=== PATIENT | male | born 1960 ===

== ENCOUNTER 2017-06-29 02:30 | Observation (INO) | payer MEDICAID, OTHER ==
[2017-06-29] MEDS ORDERED: Iohexol 240 (50 ml) PO ONE (03:23)
[2017-06-29 03:37] LABS: BASO # 0.1 K/uL (0.0-0.2); BASO % 0.4 % (0.0-2.0); EOS % 0.4 % (0.0-4.0); HEMATOCRIT 44.7 % (35.0-51.0); LYMPH # 1.8 K/uL (1.0-4.3); LYMPH % 15.2 % (20.0-40.0); MEAN CELL VOLUME 93.2 fl (80.0-94.0); MEAN CORPUSCULAR HEMOGLOBIN 32.2 pg (27.0-31.0); MEAN CORPUSCULAR HGB CONC 34.6 g/dL (33.0-37.0); MEAN PLATELET VOLUME 8.6 fl (7.2-11.7); MONO # 0.8 K/uL (0.0-0.8); MONO % 6.4 % (0.0-10.0); NEUT # 9.3 K/uL (1.8-7.0); NEUT % 77.6 % (50.0-75.0); NRBC % 0.1 % (0.0-0.0); RED CELL DISTRIBUTION WIDTH 13.9 % (11.5-14.5)
--- NOTE | 2017-06-29 03:52 | ED PDOC ---
HPI: Abdomen Time Seen by Provider: 06/29/17 02:53 Chief Complaint (Nursing): Abdominal Pain Chief Complaint (Provider): Abdominal pain History Per: Patient History/Exam Limitations: no limitations Onset/Duration Of Symptoms: Days (2) Outside of [place] travel?: No Current Symptoms Are (Timing): Still Present Location Of Pain/Discomfort: RLQ, LLQ Additional History Per: Patient Additional Complaint(s): The patient is a 57yo male, PMHx of depression, bilateral inguinal hernia repairs, presents to the ED with left sided abdominal pain, located in region of past hernia repair with mild swelling. He denies any fever, nausea, vomiting , change in bowel movements. He offers no other medical complaints. Past Medical History Reviewed: Historical Data, Nursing Documentation, Vital Signs Vital Signs: Last Vital Signs Temp 99.3 F 06/29/17 05:55 Pulse 83 06/29/17 05:55 Resp 16 06/29/17 05:55 BP 122/85 06/29/17 05:55 Pulse Ox 98 06/29/17 06:14 - Medical History PMH: COPD, Depression, HTN - Surgical History Surgical History: Hernia Repair (right inguinal (2009)) - Family History Family History: States: No Known Family Hx - Living Arrangements Living Arrangements: Other (undomiciled) - Social History Current smoker - smoking cessation education provided: Yes SMOKER/PACKS PER DAY:: 1 Alcohol: None Drugs: Denies - Immunization History Hx Influenza Vaccination: No - Home Medications Home Medications: Ambulatory Orders Medication Instructions Recorded Aleve 1 mg PO PRN 07/21/13 Naproxen Sodium [Aleve] 220 mg PO BID PRN 02/19/15 Naproxen [Naprosyn] 500 mg PO Q12H #20 tab 02/19/15 Tramadol Hydrochloride [Tramadol] 50 mg PO Q8 #10 tab 07/25/15 ARIPiprazole [Abilify] 5 mg PO HS #30 tab 02/10/16 Gabapentin [Neurontin] 400 mg PO TID #90 cap 02/10/16 Mirtazapine [Remeron] 30 mg PO HS #30 tab 02/10/16 Albuterol HFA [Ventolin HFA 90 2 puff IH [id number] PRN #0 puff 03/14/16 mcg/actuation (8 g)] Azithromycin [Zithromax] 1 tab PO DAILY #4 tablet 03/14/16 Methylprednisolone [Medrol Dose 4 mg PO DAILY #21 mg 03/14/16 Pack (21 tabs)] Ibuprofen [Motrin] 600 mg PO Q6 #20 tab 09/21/16 Nystatin [Mycostatin Cream] 100,000 unit TP TID #1 tube 09/21/16 Ibuprofen [Motrin] 600 mg PO Q8 PRN #15 tab 10/25/16 oxyCODONE/Acetaminophen [Percocet 1 ea PO Q6 PRN #10 tab 10/25/16 5/325 mg Tab] - Allergies Allergies/Adverse Reactions: Allergies Allergy/AdvReac Type Severity Reaction Status Date / Time No Known Allergies Allergy Verified 10/25/16 12:38 Review of Systems ROS Statement: Except As Marked, All Systems Reviewed And Found Negative Constitutional: Negative for: Fever Gastrointestinal: Positive for: Abdominal Pain (left inguinal area). Negative for: Nausea, Vomiting Physical Exam - Reviewed Nursing Documentation Reviewed: Yes Vital Signs Reviewed: Yes - Physical Exam Appears: Positive for: Non-toxic, No Acute Distress Head Exam: Positive for: ATRAUMATIC, NORMAL INSPECTION, NORMOCEPHALIC Skin: Positive for: Normal Color Eye Exam: Positive for: Normal appearance, EOMI, PERRL Neck: Positive for: Normal, Supple Cardiovascular/Chest: Positive for: Regular Rate, Rhythm Respiratory: Positive for: Normal Breath Sounds. Negative for: Accessory Muscle Use, Respiratory Distress Gastrointestinal/Abdominal: Positive for: Soft, Tenderness (mild tenderness in left lower quadrant along prior henria repair site; mild swelling noted, pt reports swelling is not new) Extremity: Positive for: Normal ROM. Negative for: Deformity, Swelling Neurologic/Psych: Positive for: Alert, Oriented. Negative for: Motor/Sensory Deficits - Laboratory Results Result Diagrams: 06/29/17 03:31 06/29/17 03:31 - ECG O2 Sat by Pulse Oximetry: 98 (RA) Pulse Ox Interpretation: Normal Medical Decision Making Medical Decision Making: Time: 0300 Impression: 57yo male with left inguinal pain in setting of previous inguinal hernia repair Plan: -- Labs -- CT AP w/ PO & IV contrast --Reassess Time: 0330 Pt to be placed under ED Obs pending CT AP. Scribe Attestation: Documented by Komal Lloyd acting as a scribe for Del Harris MD Provider Scribe Attestation: All medical record entries made by the Scribe were at my direction and personally dictated by me. I have reviewed the chart and agree that the record accurately reflects my personal performance of the history, physical exam, medical decision making, and the department course for this patient. I have also personally directed, reviewed, and agree with the discharge instructions and disposition. ED OBSERVATION Date of observation admission: 06/29/17 Time of observation admission: 03:30 - Observation admission statement Patient is being placed in observation because:: Pt w/ abdominal pain - Goals of Observation Goals of observation are:: Pt awaiting CT AP - Progress Note Progress Note: 06/29/17 05:05 Pt resting in room, no acute distress. 06/29/17 07:00 Pt to be signed out to Dr. Madrid pending CT AP. Disposition - Clinical Impression Clinical Impression: Abdominal pain - Patient ED Disposition Is Patient to be Admitted: Transfer of Care - Disposition Disposition: Transfer of Care Disposition Time: 03:30 Condition: FAIR Patient Signed Over To: Mila Madrid Handoff Comments: pending CT
[2017-06-29 04:24] LABS: ALB/GLOB RATIO 1.3 (1.0-2.1); ALKALINE PHOSPHATASE 135 U/L (38-126); ALT/SGPT 24 U/L (21-72); AST/SGOT 24 U/L (17-59); BLOOD UREA NITROGEN 15 mg/dl (9-20); CALCIUM 9.1 mg/dL (8.4-10.2); CARBON DIOXIDE 22 mmol/L (22-30); CHLORIDE 107 mmol/L (98-107); GFR AFRICAN-AMERICAN > 60; GLUCOSE,RANDOM 137 mg/dL (75-110); LIPASE 28 U/L (23-300); POTASSIUM 3.8 MMOL/L (3.6-5.0); SODIUM 141 mmol/l (132-148)
[2017-06-29] MEDS ORDERED: Iohexol 240 (50 ml) ONE (04:27)
[2017-06-29 05:25] LABS: RBC URINE 8 /hpf (0-3); URINE BACTERIA RARE (<OCC); URINE BILIRUBIN NEGATIVE (NEGATIVE); URINE BLOOD NEGATIVE (NEGATIVE); URINE COLOR YELLOW (YELLOW); URINE GLUCOSE (UA) NEG (Normal); URINE KETONE NEGATIVE (NEGATIVE); URINE LEUKOCYTE ESTERASE NEG Leu/uL (Negative); URINE PROTEIN 30 mg/dL (NEGATIVE); URINE UROBILINOGEN 0.2-1.0 mg/dL (0.2-1.0); WBC URINE 2 /hpf (0-5)
[2017-06-29] MEDS ORDERED: Sodium Chloride 0.9% 50 ML IV ONE (06:13)
[2017-06-29] MEDS ORDERED: Iohexol 300 100 ML IJ ONE (06:13)
--- NOTE | 2017-06-29 07:07 | ED PDOC ---
- Laboratory Results Result Diagrams: 06/29/17 03:31 06/29/17 03:31 - ECG O2 Sat by Pulse Oximetry: 97 (RA) Pulse Ox Interpretation: Normal Medical Decision Making Medical Decision Making: Time: 7:00 --Patient has been endorsed to me by Dr. Del Harris, pending CT results and final disposition *See ED-OBS tab for further documentation Scribe Attestation: Documented by Milagros Pederson, acting as a scribe for Mila Madrid MD Provider Scribe Attestation: All medical record entries made by the Scribe were at my direction and personally dictated by me. I have reviewed the chart and agree that the record accurately reflects my personal performance of the history, physical exam, medical decision making, and the department course for this patient. I have also personally directed, reviewed, and agree with the discharge instructions and disposition. Disposition - Clinical Impression Clinical Impression: Abdominal pain, Hematuria - POA Present On Arrival: None - Disposition Disposition: Routine/Home Disposition Time: 03:30 Condition: GOOD ED OBSERVATION Date of observation admission: 06/29/17 Time of observation admission: 03:30 - Observation admission statement Patient is being placed in observation because:: Abdominal pain - Goals of Observation Goals of observation are:: Time-extensive work up - Progress Note Progress Note: 06/29/17 Time: 7:00 --Patient is resting comfortably. Vital signs stable. Time: 7:16 CT Abdomen/Pelvis: FINDINGS: Lower thorax: There is minimal bibasilar atelectasis. ABDOMEN: Liver: Unremarkable. No mass. Gallbladder and bile ducts: The gallbladder is normal. No calcified stones. No ductal dilation. Pancreas: The pancreas is normal. No ductal dilation. Spleen: The spleen is normal. Adrenals: The adrenal glands are normal. Kidneys and ureters: The kidneys are normal. No hydronephrosis. Stomach and bowel: Stomach is decompressed. Colonic constipation is present. There is no evidence of intestinal obstruction. No mucosal thickening. Appendix: A normal appendix is identified. PELVIS: Bladder: Bladder is partially decompressed and demonstrates areas of wall thickening. This could relate to chronic outflow obstruction or infectious, inflammatory or neoplastic process. Please correlate clinically indicated further evaluation can be obtained. Reproductive: Prostate is prominent measuring 5.3 CM transverse. ABDOMEN and PELVIS: Intraperitoneal space: There is no evidence of free intraperitoneal fluid. There is no free intraperitoneal air. Bones/joints: There are mild degenerative changes present. No acute fracture. No dislocation. Soft tissues: Unremarkable. Vasculature: The aorta demonstrates mild atherosclerotic calcification. No abdominal aortic aneurysm. Lymph nodes: There is no evidence of lymphadenopathy. IMPRESSION: 1. Bladder is partially decompressed and demonstrates areas of wall thickening. This could relate to chronic outflow obstruction or infectious, inflammatory or neoplastic process. Please correlate clinically indicated further evaluation can be obtained. 2. Additional incidental and/or chronic findings as described. --UA reviewed and negative leukocytes, nitrates, and only 2 wbc. Patient denies dysuria. Patient made aware of his hematuria and enlarged prostate and instructed to follow-up. On reeevaluation, his abdomen is soft NT/ND. He is tolerating po and agreeable to discharge.
--- NOTE | 2017-06-29 07:16 | CT ---
EXAM: CT Abdomen and Pelvis With Intravenous Contrast CLINICAL HISTORY: 57 years old, male; Pain; Abdominal pain; Generalized; Additional info: Abd pain TECHNIQUE: Axial computed tomography images of the abdomen and pelvis with intravenous contrast. All CT scans at this facility use one or more dose reduction techniques, viz.: automated exposure control; ma/kV adjustment per patient size (including targeted exams where dose is matched to indication; i.e. head); or iterative reconstruction technique. Coronal and sagittal reformatted images were created and reviewed. CONTRAST: 95 mL of [id number] administered intravenously. COMPARISON: No relevant prior studies available. FINDINGS: Lower thorax: There is minimal bibasilar atelectasis. ABDOMEN: Liver: Unremarkable. No mass. Gallbladder and bile ducts: The gallbladder is normal. No calcified stones. No ductal dilation. Pancreas: The pancreas is normal. No ductal dilation. Spleen: The spleen is normal. Adrenals: The adrenal glands are normal. Kidneys and ureters: The kidneys are normal. No hydronephrosis. Stomach and bowel: Stomach is decompressed. Colonic constipation is present. There is no evidence of intestinal obstruction. No mucosal thickening. Appendix: A normal appendix is identified. PELVIS: Bladder: Bladder is partially decompressed and demonstrates areas of wall thickening. This could relate to chronic outflow obstruction or infectious, inflammatory or neoplastic process. Please correlate clinically indicated further evaluation can be obtained. Reproductive: Prostate is prominent measuring 5.3 CM transverse. ABDOMEN and PELVIS: Intraperitoneal space: There is no evidence of free intraperitoneal fluid. There is no free intraperitoneal air. Bones/joints: There are mild degenerative changes present. No acute fracture. No dislocation. Soft tissues: Unremarkable. Vasculature: The aorta demonstrates mild atherosclerotic calcification. No abdominal aortic aneurysm. Lymph nodes: There is no evidence of lymphadenopathy. IMPRESSION: 1. Bladder is partially decompressed and demonstrates areas of wall thickening. This could relate to chronic outflow obstruction or infectious, inflammatory or neoplastic process. Please correlate clinically indicated further evaluation can be obtained. 2. Additional incidental and/or chronic findings as described.
[2017-06-29 07:40] VITALS: BP 128/76; PULSE 78; RESP 19; TEMP 97.6; O2SAT 98
--- NOTE | 2017-06-29 07:47 | CARD ---
APPROVED REPORT EKG Measurement Heart [id number] <Conclusion> Normal sinus rhythm Normal ECG
== END 2017-06-29 07:39 | disposition home or self-care (01) ==
LOC: H.ER 02:30 → H.EROBSV 03:30
PROVIDERS: ADMIT Emergency Medicine; ATTEND Emergency Medicine
DX: R10.32 Left lower quadrant pain (principal); R31.9 Hematuria, unspecified; J44.9 Chronic obstructive pulmonary disease, unspecified; I10 Essential (primary) hypertension; F17.210 Nicotine dependence, cigarettes, uncomplicated; F32.9 Major depressive disorder, single episode, unspecified
CPT/HCPCS: 74177; 80053; 81003; 83690; 85025; 93005; 99283; G0378; Q9966; Q9967

== ENCOUNTER 2017-11-12 23:20 | Emergency (ER) | payer MEDICAID ==
[2017-11-12 23:45] VITALS: RESP 18; TEMP 98.6
--- NOTE | 2017-11-12 23:51 | ED PDOC ---
HPI: Abdomen Time Seen by Provider: 11/12/17 23:51 Chief Complaint (Nursing): GI Problem Chief Complaint (Provider): abd pain History Per: Patient Additional Complaint(s): 57-year-old male with history of cocaine abuse presents to emergency department complaining of abdominal pain and watery, diarrhea for the past 2 days. The patient states that his stool is black. He states he was seen at [facility] [place] [facility] yesterday and they gave him imodium and sent him home. He denies vomiting, fever or chills, no chest pain, shortness of breath or dyspnea on exertion. Patient currently lives in [facility]. Past Medical History Reviewed: Historical Data, Nursing Documentation, Vital Signs Vital Signs: Last Vital Signs Temp 98.6 F 11/12/17 23:40 Pulse 119 H 11/12/17 23:40 Resp 18 11/12/17 23:40 BP 149/109 H 11/12/17 23:40 Pulse Ox 98 11/13/17 02:27 - Medical History PMH: COPD, Depression, HTN (non-compliant with meds) - Surgical History Surgical History: Hernia Repair - Family History Family History: States: No Known Family Hx - Living Arrangements Living Arrangements: Other (non-domiciled) - Social History Current smoker - smoking cessation education provided: Yes Alcohol: None Drugs: Cocaine - Home Medications Home Medications: Ambulatory Orders Medication Instructions Recorded Aleve 1 mg PO PRN 07/21/13 Naproxen Sodium [Aleve] 220 mg PO BID PRN 02/19/15 Naproxen [Naprosyn] 500 mg PO Q12H #20 tab 02/19/15 Tramadol Hydrochloride [Tramadol] 50 mg PO Q8 #10 tab 07/25/15 ARIPiprazole [Abilify] 5 mg PO HS #30 tab 02/10/16 Gabapentin [Neurontin] 400 mg PO TID #90 cap 02/10/16 Mirtazapine [Remeron] 30 mg PO HS #30 tab 02/10/16 Albuterol HFA [Ventolin HFA 90 2 puff IH [id number] PRN #0 puff 03/14/16 mcg/actuation (8 g)] Azithromycin [Zithromax] 1 tab PO DAILY #4 tablet 03/14/16 Methylprednisolone [Medrol Dose 4 mg PO DAILY #21 mg 03/14/16 Pack (21 tabs)] Ibuprofen [Motrin] 600 mg PO Q6 #20 tab 09/21/16 Nystatin [Mycostatin Cream] 100,000 unit TP TID #1 tube 09/21/16 Ibuprofen [Motrin] 600 mg PO Q8 PRN #15 tab 10/25/16 oxyCODONE/Acetaminophen [Percocet 1 ea PO Q6 PRN #10 tab 10/25/16 5/325 mg Tab] - Allergies Allergies/Adverse Reactions: Allergies Allergy/AdvReac Type Severity Reaction Status Date / Time No Known Allergies Allergy Verified 10/25/16 12:38 Review of Systems ROS Statement: Except As Marked, All Systems Reviewed And Found Negative Constitutional: Negative for: Fever, Chills Cardiovascular: Negative for: Chest Pain Respiratory: Negative for: Cough Gastrointestinal: Positive for: Abdominal Pain, Diarrhea. Negative for: Nausea , Vomiting Neurological: Negative for: Headache, Dizziness Physical Exam - Reviewed Nursing Documentation Reviewed: Yes Vital Signs Reviewed: Yes - Physical Exam Appears: Positive for: Well, Non-toxic, No Acute Distress Skin: Negative for: Rash Eye Exam: Positive for: Normal appearance Cardiovascular/Chest: Positive for: Regular Rate, Rhythm Respiratory: Positive for: Normal Breath Sounds Gastrointestinal/Abdominal: Positive for: Soft, Tenderness (mild diffuse tenderness to lower abdomen, left inguinal hernia noted) Back: Negative for: L CVA Tenderness, R CVA Tenderness Neurologic/Psych: Positive for: Alert, Oriented - Laboratory Results Result Diagrams: 11/13/17 00:39 11/13/17 00:39 Urine dip results: Positive for: Blood (small). Negative for: Leukocyte Esterase, Nitrate, Ketones, Glucose, Bilirubin, Protein - ECG O2 Sat by Pulse Oximetry: 98 Pulse Ox Interpretation: Normal - Other Rad CT abd and pelvis with IV contrast X-Ray: Read By Radiologist X-Ray Interpretation: see below Medical Decision Making Medical Decision Makin57 year old male with abdominal pain and diarrhea Plan: CBC CMP Lipase U dip IVF Stool sample CT abd and pelvis with IV contrast CT: FINDINGS: Lower thorax: COPD.There is bibasilar atelectasis. Small hiatal hernia. ABDOMEN: Liver: Enlarged fatty liver. Gallbladder and bile ducts: Partially distended gallbladder with hyperdense sludge versus stones. versus vicarious excretion of the contrast. Pancreas: Unremarkable. No mass. No ductal dilation. Spleen: Unremarkable. No splenomegaly. Adrenals: Unremarkable. No mass. Kidneys and ureters: Unremarkable. No solid mass. No hydronephrosis. Stomach and bowel: Left inguinoscrotal herniation are colon. No colonic obstruction is identified. There are nonspecific fluid filled stomach, small bowel loops. These findings can represent ileus versus gastroenteritis/ enteritis versus slow transit versus peristalsis. Appendix: Normal appendix. PELVIS: Bladder: Bladder distention 9.6 cm with bladder wall thickening at the bladder base and multiple diverticula. Correlation with patient's voiding status is recommended. Reproductive: See above. ABDOMEN and PELVIS: Intraperitoneal space: Trace free pelvic fluid. Impression No free air. Bones/joints: No acute fracture. No dislocation. Soft tissues: There is a fat-containing umbilical hernia. Vasculature: Unremarkable. No abdominal aortic aneurysm. Lymph nodes: Unremarkable. No enlarged lymph nodes. IMPRESSION: 1. Bladder distention 9.6 cm with bladder wall thickening at the bladder base and multiple diverticula. These findings are unchanged from prior examination. Correlation with patient's voiding status and urology history is recommended. 2. Left inguinoscrotal herniation are colon. No colonic obstruction is identified. No strangulation or ganglion is identified. Patient is aware of all diagnostic testing results. He was referred to clinic for follow up. Disposition - Clinical Impression Clinical Impression: Diarrhea, Abdominal pain - Patient ED Disposition Is Patient to be Admitted: No Counseled Patient/Family Regarding: Studies Performed, Diagnosis, Need For Followup - Disposition Referrals: [facility] [Outside] Disposition: Routine/Home Disposition Time: 03:24 Condition: STABLE Additional Instructions: Follow-up with clinic for further evaluation of chronic inguinal hernia. Instructions: Abdominal Pain (ED), Acute Diarrhea (ED), Nutrition Tips for Relief of Diarrhea (ED) Forms: USDS (Ivorian) Results - Lab Results Lab Results: 11/13/17 11/13/17 00:39 00:39 WBC 11.2 H RBC 4.71 Hgb 14.8 Hct 43.2 MCV 91.8 MCH 31.4 H MCHC 34.2 RDW 13.2 Plt Count 209 MPV 7.0 L Neut % (Auto) 84.5 H Lymph % (Auto) 7.6 L [place] % (Auto) 7.3 Eos % (Auto) 0.2 Baso % (Auto) 0.4 Neut # 9.4 H Lymph # 0.8 L [place] # 0.8 Eos # 0.0 Baso # 0.0 Neutrophils % (Manual) Pending Lymphocytes % (Manual) Pending Monocytes % (Manual) Pending Platelet Estimate Pending Sodium 133 Potassium 3.5 L Chloride 101 Carbon Dioxide 23 Anion Gap 13 BUN 13 Creatinine 0.8 Est GFR ( Amer) > 60 Est GFR (Non-Af Amer) > 60 Random Glucose 98 Calcium 8.7 Total Bilirubin 0.5 AST 29 ALT 29 Alkaline Phosphatase 106 Total Protein 6.6 Albumin 3.6 Globulin 3.0 Albumin/Globulin Ratio 1.2 Lipase 23
[2017-11-13] MEDS ORDERED: Sodium Chloride 0.9% 1,000 ML IV STA (00:12)
[2017-11-13 00:43] LABS: BASO % 0.4 % (0.0-2.0); EOS % 0.2 % (0.0-4.0); HEMOGLOBIN 14.8 g/dL (12.0-18.0); LYMPH # 0.8 K/uL (1.0-4.3); LYMPH % 7.6 % (20.0-40.0); MEAN CELL VOLUME 91.8 fl (80.0-94.0); MEAN CORPUSCULAR HEMOGLOBIN 31.4 pg (27.0-31.0); MEAN CORPUSCULAR HGB CONC 34.2 g/dL (33.0-37.0); MONO # 0.8 K/uL (0.0-0.8); MONO % 7.3 % (0.0-10.0); NEUT # 9.4 K/uL (1.8-7.0); NEUT % 84.5 % (50.0-75.0); PLATELET COUNT 209 K/uL (130-400); RBC 4.71 Mil/uL (4.40-5.90); RED CELL DISTRIBUTION WIDTH 13.2 % (11.5-14.5); WHITE BLOOD COUNT 11.2 K/uL (4.8-10.8)
[2017-11-13 00:49] LABS: ALBUMIN 3.6 g/dL (3.5-5.0); BLOOD UREA NITROGEN 13 mg/dl (9-20); CALCIUM 8.7 mg/dL (8.4-10.2); GFR AFRICAN-AMERICAN > 60; GFR NON-AFRICAN AMERICAN > 60
[2017-11-13 00:50] LABS: ALB/GLOB RATIO 1.2 (1.0-2.1); ALT/SGPT 29 U/L (21-72); AST/SGOT 29 U/L (17-59); LIPASE 23 U/L (23-300)
[2017-11-13] MEDS ORDERED: Iohexol 300 100 ML IJ ONE (01:24)
[2017-11-13] MEDS ORDERED: Sodium Chloride 0.9% 50 ML IV ONE (01:24)
--- NOTE | 2017-11-13 02:16 | CT ---
EXAM: CT Abdomen and Pelvis With Intravenous Contrast CLINICAL HISTORY: 57 years old, male; Pain; Abdominal pain; Generalized; Additional info: Abd pain, diarrhea, left inguinal hernia TECHNIQUE: Axial computed tomography images of the abdomen and pelvis with intravenous contrast. All CT scans at this facility use one or more dose reduction techniques, viz.: automated exposure control; ma/kV adjustment per patient size (including targeted exams where dose is matched to indication; i.e. head); or iterative reconstruction technique. 587 images are submitted. Contrast is seen in the colon. Coronal and sagittal reformatted images were created and reviewed. CONTRAST: 90 mL of [id number] administered intravenously. COMPARISON: CT - ABD PELVIS PO IV CONTRAST 2017-06-29 06:36 FINDINGS: Lower thorax: COPD.There is bibasilar atelectasis. Small hiatal hernia. ABDOMEN: Liver: Enlarged fatty liver. Gallbladder and bile ducts: Partially distended gallbladder with hyperdense sludge versus stones versus vicarious excretion of the contrast. Pancreas: Unremarkable. No mass. No ductal dilation. Spleen: Unremarkable. No splenomegaly. Adrenals: Unremarkable. No mass. Kidneys and ureters: Unremarkable. No solid mass. No hydronephrosis. Stomach and bowel: Left inguinoscrotal herniation are colon. No colonic obstruction is identified. There are nonspecific fluid filled stomach, small bowel loops. These findings can represent ileus versus gastroenteritis/enteritis versus slow transit versus peristalsis. Appendix: Normal appendix. PELVIS: Bladder: Bladder distention 9.6 cm with bladder wall thickening at the bladder base and multiple diverticula. Correlation with patient's voiding status is recommended. Reproductive: See above. ABDOMEN and PELVIS: Intraperitoneal space: Trace free pelvic fluid. Impression No free air. Bones/joints: No acute fracture. No dislocation. Soft tissues: There is a fat-containing umbilical hernia. Vasculature: Unremarkable. No abdominal aortic aneurysm. Lymph nodes: Unremarkable. No enlarged lymph nodes. IMPRESSION: 1. Bladder distention 9.6 cm with bladder wall thickening at the bladder base and multiple diverticula. These findings are unchanged from prior examination. Correlation with patient's voiding status and urology history is recommended. 2. Left inguinoscrotal herniation are colon. No colonic obstruction is identified. No strangulation or ganglion is identified.
[2017-11-13 03:59] VITALS: BP 124/83; PULSE 86; O2SAT 99
[2017-11-13 04:21] LABS: BANDS 2 % (0-2); LYMPHOCYTE 12 % (20-50); MONOCYTE 5 % (0-10); TOTAL CELLS COUNTED 100
[2017-11-13 04:23] LABS: PLATELET ESTIMATE NORMAL (NORMAL)
[2017-11-13 04:37] LABS: BASOPHIL 1 % (0-2); EOSINOPHIL 2 % (0-7); NEUTROPHIL 78 % (42-75)
== END 2017-11-13 04:30 | disposition home or self-care (01) ==
LOC: H.ER 23:20
DX: R10.9 Unspecified abdominal pain (principal); R19.7 Diarrhea, unspecified; F17.200 Nicotine dependence, unspecified, uncomplicated; I10 Essential (primary) hypertension; Z86.59 Personal history of other mental and behavioral disorders
CPT/HCPCS: 74177; 80053; 83690; 85025; 87230; 96360; 99283; J7040; Q9967

== ENCOUNTER 2018-01-09 12:04 | Observation (INO) | payer MEDICAID, OTHER ==
[2018-01-09 14:52] LABS: BASO # 0.1 K/uL (0.0-0.2); BASO % 0.8 % (0.0-2.0); EOS # 0.1 K/uL (0.0-0.7); EOS % 0.9 % (0.0-4.0); HEMOGLOBIN 16.3 g/dL (12.0-18.0); LYMPH # 1.8 K/uL (1.0-4.3); MEAN CELL VOLUME 94.8 fl (80.0-94.0); MEAN CORPUSCULAR HEMOGLOBIN 31.5 pg (27.0-31.0); MEAN CORPUSCULAR HGB CONC 33.3 g/dL (33.0-37.0); MEAN PLATELET VOLUME 7.1 fl (7.2-11.7); MONO # 0.7 K/uL (0.0-0.8); MONO % 8.1 % (0.0-10.0); NEUT # 6.3 K/uL (1.8-7.0); NEUT % 70.2 % (50.0-75.0); RBC 5.19 Mil/uL (4.40-5.90); RED CELL DISTRIBUTION WIDTH 14.2 % (11.5-14.5)
[2018-01-09 15:00] LABS: ACETAMINOPHEN < 10.0 ug/ml (10.0-30.0); ALB/GLOB RATIO 1.2 (1.0-2.1); ALT/SGPT 28 U/L (21-72); AST/SGOT 21 U/L (17-59); BLOOD UREA NITROGEN 19 mg/dl (9-20); CALCIUM 9.9 mg/dL (8.4-10.2); GFR AFRICAN-AMERICAN > 60; GFR NON-AFRICAN AMERICAN > 60; SALICYLATE < 1.0 mg/dl
--- NOTE | 2018-01-09 15:34 | ED PDOC ---
HPI: Psych/Substance Abuse Time Seen by Provider: 01/09/18 12:55 Chief Complaint (Nursing): Psychiatric Evaluation Chief Complaint (Provider): Im at the end of my rope History/Exam Limitations: no limitations Onset/Duration Of Symptoms: Gradual Current Symptoms Are (Timing): Still Present Suicide/Self Injury Attempted (Context): None Modifying Factor(s): None Severity: Severe Associated Symptoms: Agitation, Paranoia Additional Complaint(s): 57yo male presents w "need for help im at the end of my rope" c/o depression and thoughts of self harm. He denies alcohol use, last drug use cocaine 1 week ago. Admits to homelessness. Denies hallucinations, fever, SOB, CP or headache. Past Medical History Reviewed: Historical Data, Nursing Documentation, Vital Signs Vital Signs: Last Vital Signs Temp 98.4 F 01/09/18 12:08 Pulse 99 H 01/09/18 12:08 Resp 18 01/09/18 12:08 BP 157/100 H 01/09/18 12:08 Pulse Ox 99 01/09/18 12:08 - Medical History PMH: Anxiety, COPD, Depression, HTN (non-compliant with meds) Denies: Arthritis, Diabetes, Fractures, Hepatitis, HIV, Kidney Stones, Seizures, Sexually Transmitted Disease - Surgical History Surgical History: Hernia Repair - Family History Family History: States: Unknown Family Hx - Living Arrangements Living Arrangements: Other - Social History Current smoker - smoking cessation education provided: Yes Alcohol: None Drugs: Cocaine - Immunization History Hx Influenza Vaccination: No - Home Medications Home Medications: Ambulatory Orders Medication Instructions Recorded No Known Home Med 01/08/18 - Allergies Allergies/Adverse Reactions: Allergies Allergy/AdvReac Type Severity Reaction Status Date / Time No Known Allergies Allergy Verified 01/08/18 13:24 Review of Systems Constitutional: Negative for: Fever Cardiovascular: Negative for: Chest Pain Respiratory: Negative for: Cough Gastrointestinal: Negative for: Nausea, Abdominal Pain Genitourinary Male: Negative for: Dysuria Musculoskeletal: Negative for: Neck Pain Skin: Negative for: Rash, Lesions Neurological: Negative for: Weakness, Numbness, Headache Psych: Positive for: Anxiety, Depression, Suicidal ideation Physical Exam - Reviewed Nursing Documentation Reviewed: Yes Vital Signs Reviewed: Yes - Physical Exam Appears: Positive for: Well, Non-toxic, No Acute Distress Head Exam: Positive for: ATRAUMATIC, NORMAL INSPECTION, NORMOCEPHALIC Skin: Positive for: Normal Color, Warm, DRY Eye Exam: Positive for: EOMI, Normal appearance, PERRL ENT: Positive for: Normal ENT Inspection Neck: Positive for: Normal, Painless ROM Cardiovascular/Chest: Positive for: Regular Rate, Rhythm Respiratory: Positive for: CNT, Normal Breath Sounds Gastrointestinal/Abdominal: Positive for: Normal Exam, Bowel Sounds, Soft Back: Positive for: Normal Inspection Extremity: Positive for: Normal ROM, Other (excoriations to skin). Negative for : Tenderness Neurologic/Psych: Positive for: Alert, Oriented, Mood/Affect (flat, anxious). Negative for: Motor/Sensory Deficits - Laboratory Results Result Diagrams: 01/10/18 04:20 01/11/18 04:25 - ECG O2 Sat by Pulse Oximetry: 99 Medical Decision Making Medical Decision Making: crisis workup initiated labs and 1:1 ordered ativan 1mg IM given for mild agitation and anxiolysis per crisis will need [facility] screen and patient uncooperative and argumentative w poor insight Disposition - Clinical Impression Clinical Impression: Suicidal ideation - Patient ED Disposition Is Patient to be Admitted: Transfer of Care - Disposition Disposition: Transfer of Care Disposition Time: 15:35 Condition: STABLE Patient Signed Over To: Saira Livingston (and FLACO Hollingsworth)
[2018-01-09 16:41] LABS: BARBITURATES, UR NEGATIVE (NEGATIVE); BENZODIAZEPINES, UR NEGATIVE (NEGATIVE); OPIATES, UR NEGATIVE (NEGATIVE); PHENCYCLIDINE, UR NEGATIVE (NEGATIVE)
[2018-01-09] MEDS ORDERED: DiphenhydrAMINE 50 mg/ml Inj IM STA (19:51)
[2018-01-09 22:14] LABS: T4 7.1 ug/dl (5.5-11.0)
[2018-01-09 22:36] LABS: T3 0.795 nmol/L (1.49-2.60)
[2018-01-10] MEDS ORDERED: Dextrose 5%/0.45% NS 1,000 ML IV SCH (00:15)
[2018-01-10 06:05] LABS: HEMOGLOBIN 15.4 g/dL (12.0-18.0); MEAN CELL VOLUME 94.9 fl (80.0-94.0); MEAN CORPUSCULAR HEMOGLOBIN 31.6 pg (27.0-31.0); MEAN CORPUSCULAR HGB CONC 33.2 g/dL (33.0-37.0); RBC 4.88 Mil/uL (4.40-5.90); WHITE BLOOD COUNT 7.5 K/uL (4.8-10.8)
[2018-01-10 06:12] LABS: BLOOD UREA NITROGEN 22 mg/dl (9-20); CALCIUM 9.3 mg/dL (8.4-10.2); GFR AFRICAN-AMERICAN > 60; GFR NON-AFRICAN AMERICAN > 60
--- NOTE | 2018-01-10 10:52 | HP ---
HISTORY OF PRESENT ILLNESS: Mr. Pitt is a 57-year-old male who was admitted via the Emergency Room because of suicidal ideation. He complains of feeling depressed and thinks he is at the end of his rope. He has thoughts of harming himself. He was seen in the Emergency Room and part of his workup included thyroid profile, which showed normal thyroid function studies. He was therefore admitted to the medical floor pending transfer to the psychiatric unit. He indicated that he had used cocaine one week prior to this presentation and admits to be in homeless. PAST MEDICAL HISTORY: He has past medical history of anxiety, depression, chronic obstructive pulmonary disease, and hypertension, but has been noncompliant to his medications. He also indicated that he has questionable history of abnormal EKG in the past. FAMILY HISTORY: Non-revealing. SOCIAL HISTORY: Socially, he does not offer history of cigarette smoking, but indicates he has smoked in the past and used the drugs. REVIEW OF SYSTEMS: Remarkable for an apprehensive young man who is not willing to answer questions. PHYSICAL EXAMINATION: VITAL SIGNS: Blood pressure 157/100 on admission, pulse of 99, respiratory rate of 18. He is febrile. O2 sat 99% on room air. SKIN: Shows fair turgor. HEENT: Pupils are equal and reactive to light and accommodation. Mouth shows fair hygiene. LUNGS: Clear. HEART: Regular. No murmurs or gallops. ABDOMEN: Soft and nontender. No organomegaly. EXTREMITIES: Shows no edema or cyanosis. CENTRAL NERVOUS SYSTEM: No grossly deficits appreciated except for the patient being apprehensive and non-cooperative. LABORATORY DATA: Remarkable for WBC of 7.5, hemoglobin of 15.4, and platelet count of 289,000. Sodium 142, potassium 4.0, BUN 22, creatinine 0.8, and random glucose 120. Thyroid profile is remarkable for TSH of 0.19, which is low and free T4 of 0.92 and T4 of 7.10. Cocaine is positive on drug screen. IMPRESSION: Suicidal ideation, hypertension poorly controlled, abnormal EKG probably secondary to hypertension and hypertensive heart disease and could also be due to drug use and cocaine abuse, thyroid disorder, and questionable hyperthyroidism. PLAN: Endocrine evaluation, Psychiatry evaluation for possible transfer to psych unit, medically cleared for transfer to the psych unit, once cleared by the financial manager. Xu Eid MD [facility] # [id number]
--- NOTE | 2018-01-10 11:45 | CP.PCM.CON ---
History of Present Illness - History of Present Illness History of Present Illness: consult requested for depression and suicidal ideations pt is 57 ys old male with previous diagnosis of depression and cocaine, and cannabis use, pt discharged on 01/09/18 from [facility] where he was admitted for one day for depression, and suicidal ideation, reportedly pt has attempted to jump in front of the tracks of the light rail pt then presented to [facility] ER complaining of depressed mood and suicidal ideations with plan either to hang himself or cut his vein pt on evaluation, loud irritable angry, denying that he signed AMA and reported that he continues to feel depressed and having suicidal thoughts, pt relates that to the fact that he is unemployed and homeless and also having conflict with his son through the interview pt requested to be discharged stating he would rather leave and end his lfe as the system could not help him and he feels mistreated discussed with pt admission to voluntary psychiatry unit for stabilization, pt refused and stated he would rather leave and end his life as he is tired pt angry, verbally abusive and cursing throughout the interview continues to report suicidal ideations with plan to cut his wrist on discharge patient urine toxicology is positive for cocaine Past Patient History - Past Medical History & Family History Past Medical History?: Yes - Past Social History Smoking Status: Heavy Smoker > 10 Cigarettes Daily - CARDIAC Hx Hypertension: Yes (non-compliant with meds) - PULMONARY Hx Chronic Obstructive Pulmonary Disease (COPD): Yes - NEUROLOGICAL Hx Seizures: No - RENAL Hx Kidney Stones: No - ENDOCRINE/METABOLIC Hx Systemic Lupus Erythematosus: No - HEMATOLOGICAL/ONCOLOGICAL Hx AIDS: No Hx Human Immunodeficiency Virus (HIV): No - MUSCULOSKELETAL/RHEUMATOLOGICAL Hx Arthritis: No Hx Falls: No Hx Fractures: No - GASTROINTESTINAL Hx Colitis: No Hx Liver Failure: No Hx Nausea: No - GENITOURINARY/GYNECOLOGICAL Hx Sexually Transmitted Disorders: No - PSYCHIATRIC Hx Anxiety: Yes Hx Depression: Yes Hx Substance Use: Yes (cocaine) - SURGICAL HISTORY Hx Surgeries: Yes Hx Herniorrhaphy: Yes (right inguinal hernia 2009) - ANESTHESIA Hx Anesthesia: Yes Hx Anesthesia Reactions: No Meds Allergies/Adverse Reactions: Allergies Allergy/AdvReac Type Severity Reaction Status Date / Time No Known Allergies Allergy Verified 01/08/18 13:24 - Medications Medications: Current Medications Dextrose/Sodium Chloride (Dextrose 5%/0.45% Ns 1000 Ml) 1,000 mls @ 40 mls/hr IV .Q24H REPLACED BY [facility] Stop: 01/11/18 00:14 Last Admin: 01/10/18 00:39 Dose: 40 mls/hr Lorazepam (Ativan) 1 mg PO Q12 PRN PRN Reason: Agitation Metoprolol Tartrate (Lopressor) 25 mg PO Q12 REPLACED BY [facility] Last Admin: 01/10/18 09:10 Dose: 25 mg Physical Exam - Psychiatric Exam Additional comments: pt seen in bed, unkempt disheveled , irritable, poor eye contact, speech loud, mood depressed and angry affect depressed, irritable, dominering and hypervigelant, thought form circumstantial, continues to report active suicidal ideations with plan to cut his wrist on discharge positive delusions of persecution towards staff alert awake oriented to person and place poor insight and poor judgment Results - Vital Signs Recent Vital Signs: Last Vital Signs Temp 98.5 F 01/10/18 08:07 Pulse 63 01/10/18 09:10 Resp 18 01/10/18 08:07 BP 137/87 01/10/18 09:10 Pulse Ox 96 01/10/18 08:07 - Labs Result Diagrams: 01/10/18 04:20 01/10/18 04:20 Labs: Laboratory Results - last 24 hr 01/09/18 01/09/18 01/09/18 14:35 14:35 14:35 WBC 9.0 RBC 5.19 Hgb 16.3 Hct 49.2 MCV 94.8 H D MCH 31.5 H MCHC 33.3 RDW 14.2 Plt Count 329 D MPV 7.1 L Neut % (Auto) 70.2 Lymph % (Auto) 20.0 Drew % (Auto) 8.1 Eos % (Auto) 0.9 Baso % (Auto) 0.8 Neut # (Auto) 6.3 Lymph # (Auto) 1.8 Drew # (Auto) 0.7 Eos # (Auto) 0.1 Baso # (Auto) 0.1 Sodium 144 Potassium 4.8 Chloride 104 Carbon Dioxide 28 Anion Gap 17 BUN 19 Creatinine 0.9 Est GFR ( Amer) > 60 Est GFR (Non-Af Amer) > 60 POC Glucose (mg/dL) Random Glucose 88 Calcium 9.9 Phosphorus Magnesium Total Bilirubin 0.4 AST 21 ALT 28 Alkaline Phosphatase 126 Troponin I Total Protein 7.3 Albumin 4.0 Globulin 3.3 Albumin/Globulin Ratio 1.2 Free T4 Thyroxine (T4) Total T3 TSH 3rd Generation Salicylates < 1.0 Urine Opiates Screen Urine Methadone Screen Acetaminophen < 10.0 L Ur Barbiturates Screen Ur Phencyclidine Scrn Ur Amphetamines Screen U Benzodiazepines Scrn U Oth Cocaine Metabols U Cannabinoids Screen Alcohol, Quantitative < 10 01/09/18 01/09/18 01/09/18 14:35 16:11 21:39 WBC RBC Hgb Hct MCV MCH MCHC RDW Plt Count MPV Neut % (Auto) Lymph % (Auto) Drew % (Auto) Eos % (Auto) Baso % (Auto) Neut # (Auto) Lymph # (Auto) Drew # (Auto) Eos # (Auto) Baso # (Auto) Sodium Potassium Chloride Carbon Dioxide Anion Gap BUN Creatinine Est GFR ( Amer) Est GFR (Non-Af Amer) POC Glucose (mg/dL) Random Glucose Calcium Phosphorus 4.1 Magnesium 2.2 Total Bilirubin AST ALT Alkaline Phosphatase Troponin I < 0.0120 Total Protein Albumin Globulin Albumin/Globulin Ratio Free T4 0.92 Thyroxine (T4) Total T3 TSH 3rd Generation 0.19 L Salicylates Urine Opiates Screen Negative Urine Methadone Screen Negative Acetaminophen Ur Barbiturates Screen Negative Ur Phencyclidine Scrn Negative Ur Amphetamines Screen Negative U Benzodiazepines Scrn Negative U Oth Cocaine Metabols Positive H U Cannabinoids Screen Negative Alcohol, Quantitative 01/09/18 01/10/18 01/10/18 21:39 04:20 04:20 WBC 7.5 RBC 4.88 Hgb 15.4 Hct 46.3 MCV 94.9 H MCH 31.6 H MCHC 33.2 RDW 14.0 Plt Count 289 MPV Neut % (Auto) Lymph % (Auto) Drew % (Auto) Eos % (Auto) Baso % (Auto) Neut # (Auto) Lymph # (Auto) Drew # (Auto) Eos # (Auto) Baso # (Auto) Sodium 142 Potassium 4.0 Chloride 107 Carbon Dioxide 23 Anion Gap 16 BUN 22 H Creatinine 0.8 Est GFR ( Amer) > 60 Est GFR (Non-Af Amer) > 60 POC Glucose (mg/dL) Random Glucose 103 Calcium 9.3 Phosphorus Magnesium Total Bilirubin AST ALT Alkaline Phosphatase Troponin I Total Protein Albumin Globulin Albumin/Globulin Ratio Free T4 Thyroxine (T4) 7.10 Total T3 0.795 L TSH 3rd Generation Salicylates Urine Opiates Screen Urine Methadone Screen Acetaminophen Ur Barbiturates Screen Ur Phencyclidine Scrn Ur Amphetamines Screen U Benzodiazepines Scrn U Oth Cocaine Metabols U Cannabinoids Screen Alcohol, Quantitative 01/10/18 05:30 WBC RBC Hgb Hct MCV MCH MCHC RDW Plt Count MPV Neut % (Auto) Lymph % (Auto) Drew % (Auto) Eos % (Auto) Baso % (Auto) Neut # (Auto) Lymph # (Auto) Drew # (Auto) Eos # (Auto) Baso # (Auto) Sodium Potassium Chloride Carbon Dioxide Anion Gap BUN Creatinine Est GFR ( Amer) Est GFR (Non-Af Amer) POC Glucose (mg/dL) 120 H Random Glucose Calcium Phosphorus Magnesium Total Bilirubin AST ALT Alkaline Phosphatase Troponin I Total Protein Albumin Globulin Albumin/Globulin Ratio Free T4 Thyroxine (T4) Total T3 TSH 3rd Generation Salicylates Urine Opiates Screen Urine Methadone Screen Acetaminophen Ur Barbiturates Screen Ur Phencyclidine Scrn Ur Amphetamines Screen U Benzodiazepines Scrn U Oth Cocaine Metabols U Cannabinoids Screen Alcohol, Quantitative Assessment & Plan - Assessment and Plan (Free Text) Assessment: 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
--- NOTE | 2018-01-10 13:13 | RAD ---
HISTORY: med clr COMPARISON: 03/14/2016 FINDINGS: LUNGS: No active pulmonary disease. Bilateral hyperaeration- background COPD compatible with this PLEURA: No significant pleural effusion identified, no pneumothorax apparent. CARDIOVASCULAR: Normal. OSSEOUS STRUCTURES: No significant abnormalities. VISUALIZED UPPER ABDOMEN: Normal. OTHER FINDINGS: None. IMPRESSION: No interval acute cardiopulmonary pathology noted. Bilateral hyperaeration -background COPD compatible with this
[2018-01-10 13:55] LABS: URINE BILIRUBIN NEGATIVE (NEGATIVE); URINE BLOOD NEGATIVE (NEGATIVE); URINE CLARITY CLEAR (Clear); URINE COLOR YELLOW (YELLOW); URINE GLUCOSE (UA) NEG (Normal); URINE LEUKOCYTE ESTERASE NEG Leu/uL (Negative); URINE PROTEIN NEGATIVE (NEGATIVE); URINE UROBILINOGEN 0.2-1.0 mg/dL (0.2-1.0)
--- NOTE | 2018-01-10 14:37 | PN ---
DATE: ENDOCRINOLOGY FOLLOWUP NOTE LOCATION: Room number 417. SUBJECTIVE: This is a 57-year-old male with known history of major anxiety, depression and admitted here with marked agitation and restlessness and emotional dysphoria and is being referred now for Endocrine evaluation because of abnormal thyroid function studies. Past medical history as mentioned above, history of hypertension, dyslipidemia and actually has been off his medications as noted. Also history of chronic schizo-affective disorder and made previous admissions for major depression, and history of chronic obstructive lung disease from underlying nicotine dependence. FAMILY HISTORY: Positive for hypertension and heart disease. SOCIAL HISTORY: The patient has supportive family, but admits to homelessness at this time. Also admits to nicotine dependence and recent cocaine use. REVIEW OF SYSTEMS: He admits to generalized body weakness with easy fatigability and tiredness and suboptimal energy level. Also admits to marked insomnia with bifrontal headaches and recent bouts of dizziness and lightheadedness. Moreover, admits to episodic precordial chest pain with palpitations, especially on exertion. His oral intake is variable with nausea and dyspepsia and occasional hyperdefecation. PHYSICAL EXAMINATION: GENERAL: An average built male in no apparent distress. VITAL SIGNS: With a blood pressure of 150/100, pulse of 100 beats per minute and regular, temperature of 98, and respirations of 20. Height is 5 feet and 6 inches and weight is 130 pounds. HEENT: Head is normocephalic. Eyes are anicteric with pink conjunctivae. Funduscopy is not possible at this time. Ears, nose and throat otherwise normal. NECK: Supple. Thyroid gland is normal. Thyroid gland shows nodular thyromegaly, which is firm and nontender. No overt bruits or any thyroid nodules at this time. HEART: Hyperdynamic precordium. S1 and S2 is rapid and regular. LUNGS: Clear to auscultation. GASTROINTESTINAL: Abdomen is flat and soft with positive bowel sounds. EXTREMITIES: No peripheral edema. Pulses are +2 bilaterally. LABORATORY DATA: His chemistries showed a BUN of 22, sodium of 142, potassium of 4.0, chloride of 107, CO2 of 23, glucose of 120 and creatinine of 0.8. His T4 levels are 7.10 with a TSH of 0.79 with the initial TSH of 0.19. ASSESSMENT: This is a 57-year-old male with subclinical hyperthyroidism and overt clinical and historical manifestations of hyperthyroidism with concomitant major depressive disorder and marked constitutional symptoms and insomnia and mood instability as noted. He most likely has Graves disease with underlying diffuse toxic goiter, but no overt compressive or obstructive manifestations. PLAN OF MANAGEMENT: We will start him on a low-dose medical therapy with Tapazole given as 5 mg p.o. twice daily after meals to start today. We will titrate incremental as indicated to optimize metabolic control. We will obtain all the thyroid stimulating immunoglobulin and a thyroid peroxidase antibody to confirm and/or indicate the presence of underlying thyroid autoimmunity. We will obtain serial chemistries and supplement accordingly as needed. We will follow. Pao Kunz MD
[2018-01-10] MEDS: methIMAzole 5 MG TAB PO SCH (17:22)
--- NOTE | 2018-01-10 19:31 | CARD ---
APPROVED REPORT EKG Measurement Heart [id number] <Conclusion> Normal sinus rhythm Incomplete right bundle branch block Borderline ECG
--- NOTE | 2018-01-10 19:42 | CARD ---
APPROVED REPORT EKG Measurement Heart [id number] [id number] <Conclusion> Unusual P axis and short [place], probable junctional tachycardia Minimal voltage criteria for LVH, may be normal variant ST elevation, consider early repolarization, pericarditis, or injury Abnormal ECG
[2018-01-11 05:52] LABS: T4 6.54 ug/dl (5.5-11.0)
[2018-01-11 05:53] LABS: ALB/GLOB RATIO 1.1 (1.0-2.1); ALBUMIN 3.5 g/dL (3.5-5.0); ALT/SGPT 20 U/L (21-72); AST/SGOT 20 U/L (17-59); BLOOD UREA NITROGEN 19 mg/dl (9-20); CALCIUM 9.4 mg/dL (8.4-10.2); GFR AFRICAN-AMERICAN > 60; GFR NON-AFRICAN AMERICAN > 60
[2018-01-11] MEDS: methIMAzole 5 MG TAB PO SCH (08:42)
--- NOTE | 2018-01-11 09:12 | CP.PCM.PN ---
Subjective - Date & Time of Evaluation Date of Evaluation: 01/11/18 Time of Evaluation: 09:12 - Subjective Subjective: APPREHENSIVE AND UNCOOPERATIVE UNWILLING TO ANSWER QUESTIONS DOES NOT LIKE MY ATTITUDE BECAUSE I WAS ASKING HIM QUESTIONS--HE THEN REFUSED TO TALK NO NEW CLINICAL FINDINGS REPORT FROM [facility] CRISIS UNIT NOTED PT NOW WANTS TO SIGN OUT OF HOSPITAL HE WAS TOLD THAT HE CANNOT SIGN OUT UNTIL CLEARED BY PSYCH HE CALLED ME A NASTY SON OF A BITCH AND REMOVED HIS IV HE DOES NOT WANT ME HIS DOCTOR AND REQUESTS A PT ADVOCATE WILL REQUEST THE NURSING RETAIL ASSISTANT TO SEE PT DISPOSITION WILL DEPEND ON PSYCH AND ORGAN PIPE VOICER. Objective - Vital Signs/Intake and Output Vital Signs (last 24 hours): Temp Pulse Resp BP Pulse Ox 98.3 F 55 L 20 133/79 95 01/11/18 08:00 01/11/18 08:41 01/11/18 08:00 01/11/18 08:41 01/11/18 08:00 - Medications Medications: Current Medications Lorazepam (Ativan) 1 mg PO Q12 PRN PRN Reason: Agitation Methimazole (Tapazole) 5 mg PO BID [facility] Last Admin: 01/11/18 08:42 Dose: 5 mg Metoprolol Tartrate (Lopressor) 25 mg PO Q12 [facility] Last Admin: 01/11/18 08:41 Dose: Not Given - Labs Labs: 01/10/18 04:20 01/11/18 04:25
--- NOTE | 2018-01-11 10:35 | CP.PCM.CON ---
History of Present Illness - History of Present Illness History of Present Illness: re evaluation requested, pt has been screened for involuntary admission and declined pt on evaluation continues to be angry , irritable, depressed,mood and affect, continues to have suicidal ideations, stating once he is discharged he would attempt suicide by running into traffic discussed with pt the need to be admitted voluntary unit in psychiatry for further treatment and stabilization, pt agreed Past Patient History - Past Medical History & Family History Past Medical History?: Yes - Past Social History Smoking Status: Heavy Smoker > 10 Cigarettes Daily - CARDIAC Hx Hypertension: Yes (non-compliant with meds) - PULMONARY Hx Chronic Obstructive Pulmonary Disease (COPD): Yes - NEUROLOGICAL Hx Seizures: No - RENAL Hx Kidney Stones: No - ENDOCRINE/METABOLIC Hx Systemic Lupus Erythematosus: No - HEMATOLOGICAL/ONCOLOGICAL Hx AIDS: No Hx Human Immunodeficiency Virus (HIV): No - MUSCULOSKELETAL/RHEUMATOLOGICAL Hx Arthritis: No Hx Falls: No Hx Fractures: No - GASTROINTESTINAL Hx Colitis: No Hx Liver Failure: No Hx Nausea: No - GENITOURINARY/GYNECOLOGICAL Hx Sexually Transmitted Disorders: No - PSYCHIATRIC Hx Anxiety: Yes Hx Depression: Yes Hx Substance Use: Yes (cocaine) - SURGICAL HISTORY Hx Surgeries: Yes Hx Herniorrhaphy: Yes (right inguinal hernia 2009) - ANESTHESIA Hx Anesthesia: Yes Hx Anesthesia Reactions: No Meds Allergies/Adverse Reactions: Allergies Allergy/AdvReac Type Severity Reaction Status Date / Time No Known Allergies Allergy Verified 01/08/18 13:24 - Medications Medications: Current Medications Lorazepam (Ativan) 1 mg PO Q12 PRN PRN Reason: Agitation Methimazole (Tapazole) 5 mg PO BID [facility] Last Admin: 01/11/18 08:42 Dose: 5 mg Metoprolol Tartrate (Lopressor) 25 mg PO Q12 [facility] Last Admin: 01/11/18 08:41 Dose: Not Given Physical Exam - Psychiatric Exam Additional comments: pt seen in bed, unkempt, irritable, disheveled, angry and depressed mood thought form circumstantial, pt continues to be paranoid towards staff members continues to express suicidal ideations, alert awake oriented to perspn and place poor insight and judgment Results - Vital Signs Recent Vital Signs: Last Vital Signs Temp 98.3 F 01/11/18 08:00 Pulse 55 L 01/11/18 08:41 Resp 20 01/11/18 08:00 BP 133/79 01/11/18 08:41 Pulse Ox 95 01/11/18 08:00 - Labs Result Diagrams: 01/10/18 04:20 01/11/18 04:25 Labs: Laboratory Results - last 24 hr 01/09/18 01/10/18 01/11/18 21:39 13:43 04:25 Sodium 140 Potassium 4.1 Chloride 105 Carbon Dioxide 23 Anion Gap 16 BUN 19 Creatinine 0.7 L Est GFR ( Amer) > 60 Est GFR (Non-Af Amer) > 60 Random Glucose 105 Calcium 9.4 Total Bilirubin 0.3 AST 20 ALT 20 L D Alkaline Phosphatase 114 Total Protein 6.7 Albumin 3.5 Globulin 3.2 Albumin/Globulin Ratio 1.1 Thyroxine (T4) 6.54 Free T3 pg/mL 3.76 TSH 3rd Generation 1.12 Urine Color Yellow Urine Clarity Clear Urine pH 6.0 Ur Specific [place] 1.025 Urine Protein Negative Urine Glucose (UA) Neg Urine Ketones Negative Urine Blood Negative Urine Nitrate Negative Urine Bilirubin Negative Urine Urobilinogen 0.2-1.0 Ur Leukocyte Esterase Neg Urine RBC (Auto) 1 Urine Microscopic WBC < 1 Assessment & Plan - Assessment and Plan (Free Text) Assessment: bipolar disorder mixed severe cocaine use disorder
--- NOTE | 2018-01-11 14:38 | CP.PCM.CON ---
History of Present Illness - History of Present Illness History of Present Illness: consult requested as pt is demanding to sign against medical advise pt has been screened by [facility] for involuntary admission, pt was declined pt at current mental status denied any current suicidal or homicidal ideations denied perceptual disturbances pt advised about the risk of relapse pt continues to request discharge against medical advise pt t current mental status not danger to self or others pt could be discharged against medical advise Past Patient History - Past Medical History & Family History Past Medical History?: Yes - Past Social History Smoking Status: Heavy Smoker > 10 Cigarettes Daily - CARDIAC Hx Hypertension: Yes (non-compliant with meds) - PULMONARY Hx Chronic Obstructive Pulmonary Disease (COPD): Yes - NEUROLOGICAL Hx Seizures: No - RENAL Hx Kidney Stones: No - ENDOCRINE/METABOLIC Hx Systemic Lupus Erythematosus: No - HEMATOLOGICAL/ONCOLOGICAL Hx AIDS: No Hx Human Immunodeficiency Virus (HIV): No - MUSCULOSKELETAL/RHEUMATOLOGICAL Hx Arthritis: No Hx Falls: No Hx Fractures: No - GASTROINTESTINAL Hx Colitis: No Hx Liver Failure: No Hx Nausea: No - GENITOURINARY/GYNECOLOGICAL Hx Sexually Transmitted Disorders: No - PSYCHIATRIC Hx Anxiety: Yes Hx Depression: Yes Hx Substance Use: Yes (cocaine) - SURGICAL HISTORY Hx Surgeries: Yes Hx Herniorrhaphy: Yes (right inguinal hernia 2009) - ANESTHESIA Hx Anesthesia: Yes Hx Anesthesia Reactions: No Meds Allergies/Adverse Reactions: Allergies Allergy/AdvReac Type Severity Reaction Status Date / Time No Known Allergies Allergy Verified 01/08/18 13:24 - Medications Medications: Current Medications Lorazepam (Ativan) 1 mg PO Q12 PRN PRN Reason: Agitation Methimazole (Tapazole) 5 mg PO BID [facility] Last Admin: 01/11/18 08:42 Dose: 5 mg Metoprolol Tartrate (Lopressor) 25 mg PO Q12 [facility] Last Admin: 01/11/18 08:41 Dose: Not Given Results - Vital Signs Recent Vital Signs: Last Vital Signs Temp 98.3 F 01/11/18 08:00 Pulse 65 01/11/18 09:00 Resp 20 01/11/18 08:00 BP 133/79 01/11/18 08:41 Pulse Ox 95 01/11/18 08:00 - Labs Result Diagrams: 01/10/18 04:20 01/11/18 04:25 Labs: Laboratory Results - last 24 hr 01/11/18 04:25 Sodium 140 Potassium 4.1 Chloride 105 Carbon Dioxide 23 Anion Gap 16 BUN 19 Creatinine 0.7 L Est GFR ( Amer) > 60 Est GFR (Non-Af Amer) > 60 Random Glucose 105 Calcium 9.4 Total Bilirubin 0.3 AST 20 ALT 20 L D Alkaline Phosphatase 114 Total Protein 6.7 Albumin 3.5 Globulin 3.2 Albumin/Globulin Ratio 1.1 Thyroxine (T4) 6.54 TSH 3rd Generation 1.12 Assessment & Plan - Assessment and Plan (Free Text) Assessment: bipolar disorder ccoaine use disorder Plan: pt psychiatricaly cleared to be discharged against medical adviseupon medical clearence
--- NOTE | 2018-01-11 16:24 | PN ---
DATE: ENDO FOLLOWUP NOTE LOCATION: Room 417. SUBJECTIVE: This is a 57-year-old male with recent major depressive disorder and concomitant polysubstance abuse and is now being followed closely for metabolic management. He also has overt early hyperthyroidism both historically, clinically and biochemically as noted. The latest chemistry showed BUN of 19, sodium of 140, potassium of 4.1, chloride of 105, CO2 of 23, glucose of 105, and creatinine of 0.7. The latest thyroid study showed T4 of 6.54 with the TSH of 1.12 and initial TSH of 0.19 as noted. So at this time, we will modify his Tapazole down to 5 mg once daily in the morning as ordered. We will obtain serial chemistries and supplement accordingly as needed. We will follow and advice accordingly. Pao Kunz MD
[2018-01-11 18:03] LABS: THYROGLOBULIN 22.3 ng/mL (2.8-40.9)
[2018-01-11 20:22] VITALS: BP 127/78; PULSE 71; RESP 18; TEMP 98.1
[2018-01-12] MEDS ORDERED: methIMAzole 5 MG TAB PO SCH (09:00)
--- NOTE | 2018-01-12 10:55 | CP.PCM.DIS ---
Provider - Provider Date of Admission: 01/09/18 20:15 Attending physician: Xu Eid MD Time Spent in preparation of Discharge (in minutes): 30 Diagnosis - Discharge Diagnosis (1) Hyperthyroidism Status: Acute (2) Major depression Status: Acute (3) Suicidal ideation Status: Acute (4) Cocaine abuse Status: Acute (5) Hypertension Status: Acute (6) Abnormal EKG Status: Acute Hospital Course - Lab Results Lab Results: Most Recent Lab Values WBC 7.5 K/uL (4.8-10.8) 01/10/18 04:20 RBC 4.88 Mil/uL (4.40-5.90) 01/10/18 04:20 Hgb 15.4 g/dL (12.0-18.0) 01/10/18 04:20 Hct 46.3 % (35.0-51.0) 01/10/18 04:20 MCV 94.9 fl (80.0-94.0) H 01/10/18 04:20 MCH 31.6 pg (27.0-31.0) H 01/10/18 04:20 MCHC 33.2 g/dL (33.0-37.0) 01/10/18 04:20 RDW 14.0 % (11.5-14.5) 01/10/18 04:20 Plt Count 289 K/uL (130-400) 01/10/18 04:20 MPV 7.1 fl (7.2-11.7) L 01/09/18 14:35 Neut % (Auto) 70.2 % (50.0-75.0) 01/09/18 14:35 Lymph % (Auto) 20.0 % (20.0-40.0) 01/09/18 14:35 [place] % (Auto) 8.1 % (0.0-10.0) 01/09/18 14:35 Eos % (Auto) 0.9 % (0.0-4.0) 01/09/18 14:35 Baso % (Auto) 0.8 % (0.0-2.0) 01/09/18 14:35 Neut # (Auto) 6.3 K/uL (1.8-7.0) 01/09/18 14:35 Lymph # (Auto) 1.8 K/uL (1.0-4.3) 01/09/18 14:35 [place] # (Auto) 0.7 K/uL (0.0-0.8) 01/09/18 14:35 Eos # (Auto) 0.1 K/uL (0.0-0.7) 01/09/18 14:35 Baso # (Auto) 0.1 K/uL (0.0-0.2) 01/09/18 14:35 Sodium 140 mmol/l (132-148) 01/11/18 04:25 Potassium 4.1 MMOL/L (3.6-5.0) 01/11/18 04:25 Chloride 105 mmol/L (98-107) 01/11/18 04:25 Carbon Dioxide 23 mmol/L (22-30) 01/11/18 04:25 Anion Gap 16 (10-20) 01/11/18 04:25 BUN 19 mg/dl (9-20) 01/11/18 04:25 Creatinine 0.7 mg/dl (0.8-1.5) L 01/11/18 04:25 Est GFR ( Amer) > 60 01/11/18 04:25 Est GFR (Non-Af Amer) > 60 01/11/18 04:25 POC Glucose (mg/dL) 120 mg/dL (65-110) H 01/10/18 05:30 Random Glucose 105 mg/dL (75-110) 01/11/18 04:25 Calcium 9.4 mg/dL (8.4-10.2) 01/11/18 04:25 Phosphorus 4.1 mg/dl (2.5-4.5) 01/09/18 14:35 Magnesium 2.2 MG/DL (1.6-2.3) 01/09/18 14:35 Total Bilirubin 0.3 mg/dl (0.2-1.3) 01/11/18 04:25 AST 20 U/L (17-59) 01/11/18 04:25 ALT 20 U/L (21-72) L D 01/11/18 04:25 Alkaline Phosphatase 114 U/L (38-126) 01/11/18 04:25 Troponin I < 0.0120 ng/mL (0.00-0.120) 01/09/18 14:35 Total Protein 6.7 G/DL (6.3-8.2) 01/11/18 04:25 Albumin 3.5 g/dL (3.5-5.0) 01/11/18 04:25 Globulin 3.2 gm/dL (2.2-3.9) 01/11/18 04:25 Albumin/Globulin Ratio 1.1 (1.0-2.1) 01/11/18 04:25 Free T4 0.92 ng/dL (0.78-2.19) 01/09/18 21:39 Thyroxine (T4) 6.54 ug/dl (5.5-11.0) 01/11/18 04:25 Free T3 pg/mL 3.76 pg/mL (2.77-5.27) 01/09/18 21:39 Total T3 0.795 nmol/L (1.49-2.60) L 01/09/18 21:39 Thyroglobulin, Quant 22.3 ng/mL (2.8-40.9) 01/09/18 21:39 TSH 3rd Generation 1.12 mIU/ML (0.46-4.68) 01/11/18 04:25 Urine Color Yellow (YELLOW) 01/10/18 13:43 Urine Clarity Clear (Clear) 01/10/18 13:43 Urine pH 6.0 (5.0-8.0) 01/10/18 13:43 Ur Specific [place] 1.025 (1.003-1.030) 01/10/18 13:43 Urine Protein Negative mg/dL (NEGATIVE) 01/10/18 13:43 Urine Glucose (UA) Neg mg/dL (Normal) 01/10/18 13:43 Urine Ketones Negative mg/dL (NEGATIVE) 01/10/18 13:43 Urine Blood Negative (NEGATIVE) 01/10/18 13:43 Urine Nitrate Negative (NEGATIVE) 01/10/18 13:43 Urine Bilirubin Negative (NEGATIVE) 01/10/18 13:43 Urine Urobilinogen 0.2-1.0 mg/dL (0.2-1.0) 01/10/18 13:43 Ur Leukocyte Esterase Neg Kan/uL (Negative) 01/10/18 13:43 Urine RBC (Auto) 1 /hpf (0-3) 01/10/18 13:43 Urine Microscopic WBC < 1 /hpf (0-5) 01/10/18 13:43 Salicylates < 1.0 mg/dl 01/09/18 14:35 Urine Opiates Screen Negative (NEGATIVE) 01/09/18 16:11 Urine Methadone Screen Negative (NEGATIVE) 01/09/18 16:11 Acetaminophen < 10.0 ug/ml (10.0-30.0) L 01/09/18 14:35 Ur Barbiturates Screen Negative (NEGATIVE) 01/09/18 16:11 Ur Phencyclidine Scrn Negative (NEGATIVE) 01/09/18 16:11 Ur Amphetamines Screen Negative (NEGATIVE) 01/09/18 16:11 U Benzodiazepines Scrn Negative (NEGATIVE) 01/09/18 16:11 U Oth Cocaine Metabols Positive (NEGATIVE) H 01/09/18 16:11 U Cannabinoids Screen Negative (NEGATIVE) 01/09/18 16:11 Alcohol, Quantitative < 10 mg/dl (0-10) 01/09/18 14:35 Thyroglobulin Antibody <1 IU/mL (< OR = 1) 01/09/18 21:39 - Hospital Course Hospital Course: APPREHENSIVE REFUSING TO ANSWER QUESTIONS FINALLY AGREED TO GO TO THE PSYCH FLOOR Discharge Exam - Head Exam Head Exam: ATRAUMATIC, NORMAL INSPECTION, NORMOCEPHALIC - Eye Exam Eye Exam: EOMI, Normal appearance, PERRL Pupil Exam: NORMAL ACCOMODATION, PERRL - GI/Abdominal Exam GI & Abdominal Exam: Normal Bowel Sounds - Rectal Exam Rectal Exam: NORMAL INSPECTION - Neurological Exam Neurological exam: Alert, CN II-XII Intact, Normal Gait, Oriented x3, Reflexes Normal - Psychiatric Exam Additional comments: COMFRONTATIONAL AND APPREHENSIVE - Skin Skin Exam: Dry, Intact, Normal Color, Warm Discharge Plan - Follow Up Plan Condition: STABLE Disposition: DISCHARGE TO PSYCH HOSPITAL Instructions: Depression, Adult (DC), Hyperthyroidism (Overactive Thyroid) (DC) Referrals: Barry Peterson MD [Medical Doctor] - Pao Kunz MD [Medical Doctor] -
[2018-01-14 12:32] VITALS: O2SAT 99
[2018-01-15 18:08] LABS: TSI <89 % baseline (<140)
== END 2018-01-11 21:15 ==
LOC: H.ER 12:04 → H.ERHOLD 20:15 → H.TEL 22:55
PROVIDERS: ADMIT Internal Medicine Pulmonary Disease; ATTEND Internal Medicine Pulmonary Disease
DX: E05.00 Thyrotoxicosis with diffuse goiter without thyrotoxic crisis or storm (principal); F32.9 Major depressive disorder, single episode, unspecified; R45.851 Suicidal ideations; F14.10 Cocaine abuse, uncomplicated; I10 Essential (primary) hypertension; R94.31 Abnormal electrocardiogram [ECG] [EKG]; Z59.0 Homelessness; F41.9 Anxiety disorder, unspecified; J44.9 Chronic obstructive pulmonary disease, unspecified; Z91.14 Patient's other noncompliance with medication regimen; F17.210 Nicotine dependence, cigarettes, uncomplicated; E78.5 Hyperlipidemia, unspecified; G47.00 Insomnia, unspecified; F12.10 Cannabis abuse, uncomplicated
CPT/HCPCS: 36415; 71045; 80048; 80053; 80320; 80324; 80329; 80345; 80346; 80349; 80353; 80358; 80361; 81003; 82948; 83735; 83992; 84100; 84432; 84436; 84439; 84443; 84445; 84481; 84484; 85025; 85027; 86376; 86800; 93005; 96372; 99285; G0378; J1200; J2060; J7042

== ENCOUNTER 2018-01-11 20:58 | Inpatient (IN) | payer MEDICAID ==
[2018-01-11 21:31] VITALS: BMI 20.9
[2018-01-11] MEDS ORDERED: Alum-Mag Hydrox-Simethicone Susp (30 mL) PO PRN (21:51)
[2018-01-11] MEDS ORDERED: DiphenhydrAMINE 50 mg/ml Inj IM PRN (21:51)
[2018-01-11] MEDS ORDERED: Magnesium Hydroxide Susp 30 ml UD PO PRN (21:51)
--- NOTE | 2018-01-11 22:40 | PCM.BM ---
<DurgaDelores - Last Filed: 01/11/18 22:38> Treatment Plan Problems - Problems identified on initial assessmt Feelings of Worthlesness Date Initiated: 01/11/18 Time Initiated: 22:39 Assessment reference: NA Status: Active Treatment assets and liabiliti Patient Assests: cooperative, resourceful, self-reliant, ADL independent, negotiates basic needs Patient Liabilities: financial problems, poor support system - Milieu Protocol Maintain good personal hygiene: daily Encourage regular showers, daily Remind patient to perform daily oral care, daily Assist patient to perform ADL's Conduct patient checks and document Observation sheet: Q15 minutes Maintain personal safety: every shift Educate patient to report safety concerns to staff, every shift Monitor environment for contraband/sharps Medication safety: Monitor for expected outcome, potential side effects: every shift, Assess barriers to learning: every shift, Assess readiness for medication education: every shift <David Purdy - Last Filed: 01/15/18 11:38> Family Contact Family involvement: Famliy/SO not involved Family contact: Patient declines to allow family contact at present Family contact name: Pt denied. - Goals for Treatment Patient goals for treatment: Pt reported his only goal is to obtain housing. Pt reported that he would not be depressed or feel the need to use substances if he had a home and felt settled. Discharge/Continuing Care - Education Needs Education Needs: Patient Medication, Patient Diagnosis/Disease Process, Patient Coping Skills, Patient Community resources, Patient Aftercare Safety Plan - Discharge Discharge Criteria: Tolerates medication w/o severe side effects, Free of Suicidal thoughts, Free of agitation, Normal sleep pattern, Ability to care for self, Reduction of target symptoms Discharge to:: Half-Way - Additional Comments 01/15/18 11:40 Pt reported that staff already answered questions about his medications, thyroid and aftercare, so pt denied questions or comments at this time and is only looking forward to discharge. - Treatment Team Participation Discussed with Family/SO: No Was Patient/Family/SO present at Treatment Team Meeting: Yes <Barry Peterson - Last Filed: 01/15/18 11:49> - Diagnosis (1) Depression Status: Acute Interventions: psychotherapy pharmacotherapy 01/15/18 11:49
[2018-01-11 23:28] VITALS: RESP 18
[2018-01-12 06:59] LABS: T4 7.27 ug/dl (5.5-11.0)
--- NOTE | 2018-01-12 13:46 | PCM.PSYCH ---
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 where he was admitted for one day for depression, and suicidal ideation, reportedly pt has attempted to jump in front of the tracks of the light rail, p pt then presented to [facility] ER complaining of depressed mood and suicidal ideations with plan either to hang himself or cut his vein pt on evaluation,presenting with irritability and depression , pt relates that to the fact that he is unemployed and homeless and also having conflict with his only son who is currently in the [employer] pt reported cocaine use started at age 19ys , his depression started 15ys ago since the mother of his child of cancer, he stated he had multiple jobs, but giving vague history why he is currently unemployed or homeless , pt also gave vague previous psychiatric treatment stating he was mainly treated for personality disorder reported current depressed mood , irritability and early insomnia denied active suicidal ideations on the unit , denied homicidal ideations , denied perceptual disturbances Current Medications: Active Medications Generic Name Dose Route Start Last Admin Trade Name Freq PRN Reason Stop Dose Admin Acetaminophen 650 mg 01/11/18 21:51 Tylenol 325mg Tab PO Q4 PRN Pain, moderate (4-7) Al Hydrox/Mg Hydrox/Simethicone 30 ml 01/11/18 21:51 Maalox Plus 30 Ml PO Q4 PRN Dyspepsia Diphenhydramine HCl 50 mg 01/11/18 21:51 Benadryl IM Q6 PRN Extrapyramidal S/S Unable PO Diphenhydramine HCl 50 mg 01/11/18 21:51 Benadryl PO Q6 PRN Extrapyramidal Symptoms Haloperidol 5 mg 01/11/18 21:51 Haldol PO Q4 PRN Agitation Haloperidol Lactate 5 mg 01/11/18 21:51 Haldol IM Q4 PRN Agitation, Unable to Take PO Lorazepam 2 mg 01/11/18 21:51 Ativan IM Q4 PRN Anxiety/Agitation,Unable PO Lorazepam 1 mg 01/11/18 21:51 Ativan PO Q4 PRN Anxiety/Agitation Magnesium Hydroxide 30 ml 01/11/18 21:51 Milk Of Magnesia PO HS PRN Constipation Mirtazapine 7.5 mg 01/12/18 22:00 Remeron PO HS THANIA Nicotine 1 patch 01/13/18 09:00 Nicoderm Cq TD DAILY THANIA Oxcarbazepine 150 mg 01/12/18 17:00 Trileptal PO BID THANIA Past Psychiatric History - Past Psychiatric History Explanation of prior treatment: pt providing vague previous psychiatric treament about three inpatient hospitalizations pt has one previous suicidal attempt by trying to hang himself, not providing furtheer details History of ETOH/Drug Use: history of cocaine use History of Family Illness: fahter history of alcohol use Pertinent Medical Hx (Current Medical&Sleep Prob, Allergies): Allergies Allergy/AdvReac Type Severity Reaction Status Date / Time No Known Allergies Allergy Verified 01/08/18 13:24 No Known Home Med 01/08/18 Mental Status Examination - Personal Presentation Personal Presentation: Looks older than stated age - Affect Affect: Constricted, Depressed - Motor Activity Motor Activity: Psychomotor Agitation - Reliability in Providing Information Reliability in Providing Information: Poor, due to altered mood - Speech Speech: Tangential - Mood Mood: Depressed, Anxious - Formal Thought Process Formal Thought Process: Circumstantial - Hallucinations/Delusions Additional comments: denied perceptual disturbances, non elicited - Obsessions/Compulsions Obsessions: No Compulsions: No - Cognitive Functions Orientation: Person, Place, Situation Sensorium: Alert Attention/Concentration: Attentive Judgement: Imparied, as evidence by: Poor judgement, Imparied, as evidence by: Lack of insight into illness - Risk Risk: Suicidal, Diminished functioning - Strength & Assets Inventory Strength & Assets Inventory: Life experience - Limitations Additional comments: homeless , unemployed DSM 5 DX - DSM 5 DSM 5 Diagnosis: 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
--- NOTE | 2018-01-13 18:51 | PCM.PYCHPN ---
Psychiatric Progress Note - Psychiatric Progress Note Patient seen today, length of contact: chart reviewed case discussed with team Patient Chief Complaint: was feeling depressed difficulty sleeping beginning to feel little better has signed 48 your notice is willing to remain until 01/15/18, has been adherent with treatment Problems Identified/Issues Discussed: alteration in mood Medical Problems: per chart Diagnostic Results: per psychiatry per medicine per nursing per social work DSM 5 Symptoms Update: alteration in mood Medication Change: No Medical Record Reviewed: Yes Consults ordered or reviewed: pt being followed by hospitalist Mental Status Examination - Cognitive Function Orientation: Person, Place, Situation, Time Attention: WNL Concentration: WNL Association: [facility] Fund of Knowledge: [facility] Decription of patient's judgement and insights: impaired - Mood Mood: Depressed, Anxious - Affect Affect: Constricted, Depressed - Speech Speech: Soft - Formal Thought Process Formal Thought Process: Circumstantial - Homicidal Ideation Homicidal Ideation: No Goal/Treatment Plan - Goal/Treatment Plan Progress Toward Problem(s) and Goals/Treatment Plan: inpt milieu vital signs and clinical assessment per protocol and per status adjust meds per status pt explained what a 48 hour notice including possible screening for involuntary commitment pt is aware and verbally agreeable discharge planning in progress Estimated Date of D/C: 01/15/18 If changed, why: pt defers
--- NOTE | 2018-01-14 17:47 | PCM.PYCHPN ---
Psychiatric Progress Note - Psychiatric Progress Note Patient seen today, length of contact: chart reviewed case discussed with team Patient Chief Complaint: seen about unit then laying in room appears to reading a book, reports that is feeling better but is asking information related to his thyroid function. took remeron 7.5mg po hs last night without notable side effects has signed 48 your notice is willing to remain until 01/15/18, has been adherent with treatment Problems Identified/Issues Discussed: alteration in mood Medical Problems: per chart Diagnostic Results: per psychiatry per medicine per nursing per social work DSM 5 Symptoms Update: somewhat less depression somewhat improving sleep hx of hypothyroidism Medication Change: No Medical Record Reviewed: Yes Consults ordered or reviewed: pt seen by hospitalist Mental Status Examination - Cognitive Function Orientation: Person, Place, Situation, Time Attention: WNL Concentration: WNL Association: [facility] Fund of Knowledge: [facility]N Decription of patient's judgement and insights: impaired - Mood Mood: Depressed, Anxious - Affect Affect: Constricted, Depressed - Speech Speech: Soft - Formal Thought Process Formal Thought Process: Circumstantial - Homicidal Ideation Homicidal Ideation: No Goal/Treatment Plan - Goal/Treatment Plan Progress Toward Problem(s) and Goals/Treatment Plan: inpt milieu vital signs and clinical assessment per protocol and per status adjust meds per status pt explained what a 48 hour notice including possible screening for involuntary commitment pt is aware and verbally agreeable to remain and meeting with team in am and discuss discharge plan tsh was ordered last night staff called this evening to request that it be drawn then staff to have hospitalist review ?endocrine consult, as well to review pt's b/p discharge planning in progress Estimated Date of D/C: 01/15/18 - Smoking Cessation Smoking Cessation Initiated: No Reason for not providing: pt deferred
[2018-01-15 09:29] VITALS: BP 163/88; PULSE 64; TEMP 95.9
--- NOTE | 2018-01-15 11:55 | PCM.PYCHDC ---
Mental Status Examination - Mental Status Examination Orientation: Person, Place, Situation Memory: Intact Mood: Neutral Affect: Broad Speech: Appropriate Attention: WNL Concentration: WNL Association: WNL Fund of Knowledge: WNL Formal Thought Process: No Impairment Description of patient's judgement and insight: fair insight and judgment Psychotic Thoughts and Behaviors: pt denied perceptual disturbances, non elicited Suicidal Ideation: No Current Homicidal Ideation?: No Discharge Summary - Discharge Note Reason for Hospitalization: 57 ys old male with previous diagnosis of depression and cocaine, and cannabis use, pt discharged on 01/09/18 from [facility] where he was admitted for one day for depression, and suicidal ideation, reportedly pt has attempted to jump in front of the tracks [place] the light rail, p pt then presented to [facility] ER complaining of depressed mood and suicidal ideations with plan either to hang himself or cut his vein pt on evaluation,presenting with irritability and depression , pt relates that to the fact that he is unemployed and homeless and also having conflict with his only son who is currently in the navy pt reported cocaine use started at age 19ys , his depression started 15ys ago since the mother of his child of cancer, he stated he had multiple jobs, but giving vague history why he is currently unemployed or homeless , pt also gave vague previous psychiatric treatment stating he was mainly treated for personality disorder reported current depressed mood , irritability and early insomnia denied active suicidal ideations on the unit , denied homicidal ideations , denied perceptual disturbances Laboratory Data: Abnormal Lab Results 01/13/18 19:00 TSH 3rd Generation 0.64 Consultations:: List each consultation separately and include: 1. Reason for request. 2. Findings. 3. Follow-up Summary of Hospital Course include:: 1. Description of specific treatment plan utilized for patients during their course of treatmen. 2. Summarize the time- course for resolution of acute symptoms and/or regressed behaviors. 3. Describe issues identified and worked on during hospitalization. 4. Describe medication utilized. 5. Describe medical problems identified and treated. 6. Reassessment of suicide risk Summary of Hospital Course: pt on admission was started on remeron 7.5mg qhs for depression and trileptal 150mg bid for mood stabilization pt was compliant with medications, denied any side effects CBT group and supportive therapy were provided on discharge, pt mental status was stable denied any current suicidal or homicidal ideations denied perceptual disturbances' follow up arranged by hospice social worker at [facility] program - Diagnosis (1) Depression Current Visit: Yes Status: Acute - Final Diagnosis (DSM 5) Condition upon Discharge: GOOD Disposition: HOME/ ROUTINE Follow-up Treatment Plan: remron 7.5mg qhs with plan to uptitrate gradually trileptal 150mg bid for mood stabilization monitor pt for psychopharmacological effects and side effect profile CBT group and supportive therapy Prescriptions/Medication Reconciliation: Mirtazapine [Remeron] 7.5 mg PO HS 30 Days #30 tab Nicotine 21 mg/24 hr [Nicoderm Cq] 1 patch TD DAILY 30 Days #30 patch OXcarbazepine [Trileptal] 150 mg PO BID 30 Days #60 tab - Smoking Cessation Smoking Cessation Medication prescribed: Yes - Antipsychotic Medications Pt discharged on 2 or more routine antipsychotic medications: No
== END 2018-01-15 12:26 | disposition home or self-care (01) | DRG 748 ==
LOC: H.PSYCH 21:32
PROVIDERS: ADMIT Psychiatry & Neurology Psychiatry; ATTEND Psychiatry & Neurology Psychiatry
PROC: GZHZZZZ Group Psychotherapy (ICD-10-PCS; principal; 2018-01-11)
PROC: HZ52ZZZ Individual Psychotherapy for Substance Abuse Treatment, Cognitive-Behavioral (ICD-10-PCS; 2018-01-11)
PROC: GZ58ZZZ Individual Psychotherapy, Cognitive-Behavioral (ICD-10-PCS; 2018-01-11)
DX: F14.14 Cocaine abuse with cocaine-induced mood disorder (principal); F32.9 Major depressive disorder, single episode, unspecified; F12.10 Cannabis abuse, uncomplicated; F60.9 Personality disorder, unspecified; E03.9 Hypothyroidism, unspecified; Z91.5 Personal history of self-harm; Z59.0 Homelessness; Z56.0 Unemployment, unspecified

== ENCOUNTER 2018-03-14 14:07 | Observation (INO) | payer MEDICAID ==
--- NOTE | 2018-03-14 14:31 | ED PDOC ---
HPI:STROKE - Time Time: 14:29 - Historian Historian: Patient - Chief Complaint Chief Complaint: Weakness (Unable to extend wrist/hand right side since waking up this AM. Denies haedache, difficulty speaking or any other weakness.), Numbness - Onset Date: 03/14/18 Onset: Days (1) - Timing Timing: Currently Symptomatic - Location Locate right:: Upper extremity - Severity of pain Maximum severity:: Mild Pain Scale:: 0 Severity Current: Mild Pain Scale:: 0 - TPA Positive for Contraindication: Yes Reason tPA is not being Administered: Unknown onset, woke up with sxs. Last known well 10PM last night - Notes: Notes:: Admits to cocaine use 2 days ago NIHSS Stroke Scale - How Severe is the Stroke Level of Consciousness: 0=Alert LOC to Questions: 0=Both comments correct LOC to commands: 0=Obeys both correctly Best Gaze: 0=Normal Visual: 0=No visual loss Facial: 0=Normal Motor Arm - Left: 0=No drift Motor Arm - Right: 0=No drift Motor Leg - Left: 0=No drift Motor Leg - Right: 0=No drift Limb Ataxia: 0=Absent Sensory: 1=Mild to moderate loss Best Language: 0=No aphasia Dysarthia: 0=Normal articulation Extinction & Inattention (Neglect): 0=Normal, no object Score: 1 rTPA Inclusion/Exclusion - Refusal of Treatment Patient Refused Treatment: No - Inclusion Criteria for Altepase Patient is 18 years or Older: Yes The Clinical Diagnosis of Ischemic Stroke That is Causing a Potentially Disabling Neurological Deficit: No Time of Onset is Well Established to be Less Than 270 Minute Before Treatment Would Begin: No Risk/Benefit Discussed With Patient/Family Member Present: No Past Medical History Vital Signs: Last Vital Signs Temp 97.5 F L 03/14/18 14:10 Pulse 76 03/14/18 14:10 Resp 16 03/14/18 14:10 BP 134/88 03/14/18 14:10 Pulse Ox 95 03/14/18 14:10 - Medical History PMH: Anxiety, COPD, Depression, HTN (non-compliant with meds) Denies: Arthritis, Diabetes, Fractures, Hepatitis, HIV, Kidney Stones, Chronic Kidney Disease, Seizures, Sexually Transmitted Disease - Surgical History Surgical History: Hernia Repair - Family History Family History: States: Unknown Family Hx - Immunization History Hx Influenza Vaccination: No - Home Medications Home Medications: Ambulatory Orders Medication Instructions Recorded Mirtazapine [Remeron] 7.5 mg PO HS 30 Days #30 tab 01/15/18 OXcarbazepine [Trileptal] 150 mg PO BID 30 Days #60 tab 01/15/18 - Allergies Allergies/Adverse Reactions: Allergies Allergy/AdvReac Type Severity Reaction Status Date / Time No Known Allergies Allergy Verified 03/14/18 14:10 Review of Systems ROS Statement: Except As Marked, All Systems Reviewed And Found Negative Neurological: Positive for: Weakness, Numbness Physical Exam - Reviewed Nursing Documentation Reviewed: Yes Vital Signs Reviewed: Yes - Physical Exam Appears: Positive for: Non-toxic, No Acute Distress Head Exam: Positive for: ATRAUMATIC, NORMAL INSPECTION, NORMOCEPHALIC Skin: Positive for: Normal Color, Warm, DRY Eye Exam: Positive for: EOMI, Normal appearance, PERRL ENT: Positive for: Normal ENT Inspection Neck: Positive for: Normal, Painless ROM Cardiovascular/Chest: Positive for: Regular Rate, Rhythm Respiratory: Positive for: CNT, Normal Breath Sounds Gastrointestinal/Abdominal: Positive for: Normal Exam, Soft Back: Positive for: Normal Inspection Extremity: Positive for: Normal ROM Neurologic/Psych: Positive for: Alert, Oriented. Negative for: Motor/Sensory Deficits (Flexion right wrist mildly decreased compared to left. Mild decrease in sensation right forearm.) - Laboratory Results Result Diagrams: 03/14/18 14:30 03/14/18 14:30 - ECG O2 Sat by Pulse Oximetry: 95 Disposition - Clinical Impression Clinical Impression: Arm paresthesia, right, Substance abuse - Patient ED Disposition Is Patient to be Admitted: Yes - Disposition Disposition Time: 15:31 Condition: FAIR Forms: [facility] (Serbian) - Pt Status Changed To: Hospital Disposition Of: Observation - POA Present On Arrival: None
[2018-03-14 14:41] LABS: BASO # 0.1 K/uL (0.0-0.2); BASO % 0.4 % (0.0-2.0); EOS # 0.1 K/uL (0.0-0.7); EOS % 0.7 % (0.0-4.0); LYMPH # 1.6 K/uL (1.0-4.3); LYMPH % 13.1 % (20.0-40.0); MEAN CELL VOLUME 93.3 fl (80.0-94.0); MEAN CORPUSCULAR HGB CONC 34.3 g/dL (33.0-37.0); MEAN PLATELET VOLUME 6.9 fl (7.2-11.7); MONO % 8.3 % (0.0-10.0); NEUT # 9.2 K/uL (1.8-7.0); NEUT % 77.5 % (50.0-75.0); NRBC % 0.1 % (0.0-0.0); RBC 5.31 Mil/uL (4.40-5.90); RED CELL DISTRIBUTION WIDTH 13.8 % (11.5-14.5); WHITE BLOOD COUNT 11.9 K/uL (4.8-10.8)
--- NOTE | 2018-03-14 14:47 | CT ---
PROCEDURE: CT HEAD WITHOUT CONTRAST. HISTORY: code stroke COMPARISON: None available. TECHNIQUE: Axial computed tomography images were obtained through the head/brain without intravenous contrast. Radiation dose: Total exam DLP = 864.10 mGy-cm. This CT exam was performed using one or more of the following dose reduction techniques: Automated exposure control, adjustment of the mA and/or kV according to patient size, and/or use of iterative reconstruction technique. FINDINGS: HEMORRHAGE: No intracranial hemorrhage. BRAIN: No cortical edema, mass effect or intra hemorrhage is appreciate suggests an acute or separate brain infarction at this time. Corticomedullary differentiation is well-preserved and sulci and cisterns appear diffusely unremarkable midline brain anatomy appears unremarkable. Post fossa contents unremarkable as well including the brainstem and cerebellum. Trace periventricular white matter lucency likely reflects chronic microangiopathy. No suspicious extra-axial fluid collection identified. VENTRICLES: Unremarkable. No hydrocephalus. CALVARIUM: Unremarkable. PARANASAL SINUSES: Unremarkable as visualized. No significant inflammatory changes. MASTOID AIR CELLS: Unremarkable as visualized. No inflammatory changes. OTHER FINDINGS: None. IMPRESSION: Trace chronic microangiopathy. No definite acute intracranial findings including acute or subacute brain infarction by standard CT. Follow-up MRI or CT are available if clinically warranted. Findings discussed with Dr. Eli 03/14/2018, 2:40 p.m. with written down and read back verification.
[2018-03-14 14:49] LABS: PARTIAL THROMBOPLASTIN TIME 31.9 Seconds (25.6-37.1); PROTHROMBIN TIME 11.5 Seconds (9.8-13.1)
[2018-03-14 15:01] LABS: ALB/GLOB RATIO 1.2 (1.0-2.1); ALBUMIN 3.8 g/dL (3.5-5.0); ALT/SGPT 34 U/L (21-72); AST/SGOT 25 U/L (17-59); BLOOD UREA NITROGEN 14 mg/dl (9-20); CALCIUM 9.4 mg/dL (8.4-10.2); GFR AFRICAN-AMERICAN > 60; GFR NON-AFRICAN AMERICAN > 60; HDL CHOLESTEROL 42 MG/DL (30-70)
[2018-03-14] MEDS: Sodium Chloride 0.9% 1,000 ML IV SCH (15:09)
[2018-03-14 15:14] LABS: LDL CHOLESTEROL 108 mg/dL (0-129)
[2018-03-14] MEDS ORDERED: Sodium Chloride 0.9% 1,000 ML IV STA (16:16)
--- NOTE | 2018-03-14 16:47 | RAD ---
HISTORY: Code Stroke COMPARISON: 01/10/2018 FINDINGS: LUNGS: No active pulmonary disease. PLEURA: No significant pleural effusion identified, no pneumothorax apparent. CARDIOVASCULAR: Normal. OSSEOUS STRUCTURES: No significant abnormalities. VISUALIZED UPPER ABDOMEN: Normal. OTHER FINDINGS: None. IMPRESSION: No active disease. No significant interval change compared to the prior examination(s).
[2018-03-15 06:37] LABS: HEMOGLOBIN 15.7 g/dL (12.0-18.0); MEAN CELL VOLUME 94.3 fl (80.0-94.0); MEAN CORPUSCULAR HEMOGLOBIN 32.3 pg (27.0-31.0); MEAN CORPUSCULAR HGB CONC 34.2 g/dL (33.0-37.0); RBC 4.86 Mil/uL (4.40-5.90); RED CELL DISTRIBUTION WIDTH 13.9 % (11.5-14.5); WHITE BLOOD COUNT 6.4 K/uL (4.8-10.8)
[2018-03-15] MEDS: Sodium Chloride 0.9% 1,000 ML IV SCH ×2 (06:47→11:37)
[2018-03-15 06:50] LABS: ALB/GLOB RATIO 1.1 (1.0-2.1); ALBUMIN 3.1 g/dL (3.5-5.0); ALT/SGPT 28 U/L (21-72); AST/SGOT 19 U/L (17-59); BLOOD UREA NITROGEN 13 mg/dl (9-20); CALCIUM 8.8 mg/dL (8.4-10.2); GFR AFRICAN-AMERICAN > 60; GFR NON-AFRICAN AMERICAN > 60; HDL CHOLESTEROL 33 MG/DL (30-70); LDL CHOLESTEROL 96 mg/dL (0-129)
[2018-03-15 07:09] LABS: T3 0.812 nmol/L (1.49-2.60)
[2018-03-15 08:01] VITALS: RESP 20
[2018-03-15] MEDS ORDERED: Enoxaparin 40 mg Syringe SC SCH (09:00)
--- NOTE | 2018-03-15 12:00 | CARD ---
APPROVED REPORT EKG Measurement Heart [id number] <Conclusion> Normal sinus rhythm Normal ECG
[2018-03-15 12:32] VITALS: BP 123/73; PULSE 73; TEMP 98.2; O2SAT 96
--- NOTE | 2018-03-15 13:09 | MRI ---
PROCEDURE: MRI BRAIN WITHOUT CONTRAST HISTORY: right arm numbness COMPARISON: None. TECHNIQUE: Multiplanar, multisequence MR images of the brain were obtained without intravenous contrast enhancement. FINDINGS: HEMORRHAGE: None DWI: No evidence of an acute or early subacute infarction. BRAIN PARENCHYMA: No mass effect or edema. Mild chronic microvascular changes VENTRICLES: Unremarkable. No hydrocephalus. CRANIUM: Unremarkable. ORBITS: Grossly unremarkable. PARANASAL SINUSES/MASTOIDS: Clear VASCULAR SYSTEM: Skull base flow voids intact. OTHER FINDINGS: None. IMPRESSION: No acute intracranial findings
--- NOTE | 2018-03-15 13:17 | MRI ---
PROCEDURE: Magnetic Resonance Angiography Brain HISTORY: cva COMPARISON: None available. TECHNIQUE: 3D time of flight MR angiography of the intracranial arteries was performed. Rotating maximum intensity projection images were generated. FINDINGS: INTERNAL CAROTID ARTERIES: Unremarkable. The skull base, petrous, cavernous and supraclinoid segments are bilaterally widely patient. ANTERIOR CEREBRAL ARTERIES: Unremarkable. A1 and A2 segments are widely patent. Smaller distal branches unremarkable, as visualized. MIDDLE CEREBRAL ARTERIES: Unremarkable. M1 and M2 segments are widely patent. Perisylvian branches grossly symmetric. POSTERIOR CIRCULATION: Basilar Artery: Unremarkable. Distal Vertebral Arteries: Unremarkable. Posterior Cerebral Arteries: Unremarkable. Posterior Inferior Cerebellar Arteries: Unremarkable. ANEURYSM/ VASCULAR MALFORMATIONS: None. OTHER FINDINGS: None. IMPRESSION: Unremarkable MR angiography of the brain.
--- NOTE | 2018-03-15 14:06 | CP.PCM.HP ---
History of Present Illness - History of Present Illness History of Present Illness: Patient transferred today under our service from Dr. Regan's service. All chart and clinical data reviewed. As per chart and prior admissions patient is a 57 y/o homeless male with PMH depression with suicidal ideation ( prior psych admissions) , drug abuse history ( cocaine ),hyperthyroidism, HTN .Patient at present refused to give history to check writer stating that everything is already in the chart and he is feeling fine. As per chart patient had presented to ER complaining of 1 day history of being unable to extend wrist on the right side , last 2 digits. As per staff eval earlier today patient with no neuro deficits He was evaluated by neurology earlier today and was thought to have carpal tunnel and was cleared for discharge if MRI / MRA were negative All work up including CT head MRI and MRA head showed no acute pathology. Physical exam showed normal ROM to right wrist , normal skin color and joint alignment, with no swelling , no signs of trauma , pulses intact. Denies any numbness or tingling. Discussed all test results with patient and explained that imaging showed no stroke or other acute pathology and since he is feeling better he was cleared for discharge. 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 Tried to explain his results again but unable to do so due to patient getting more aggravated ,very agitated and angry , pulling out tele monitor, and yelling that because of his poor insurance we are not providing appropriate care and tests. Manufacturing Maintenance Mechanic decided to leave the room to let patient calm himself , informing unit trust manager and nurse of the incident. Patient dressed up and walked himself out of the unit . All info provided from chart reviews Allergies ; NKDa - as per prior charts PMH :PMH depression with suicidal ideation ( prior psych admissions) , drug abuse history ( cocaine ),hyperthyroidism, HTN Medications- remeron , trileptal Surgery; unknown Family history ; unknown Social history ; Homeless , history of drug abuse Present on Admission - Present on Admission Any Indicators Present on Admission: No Past Patient History - Past Medical History & Family History Past Medical History?: Yes - Past Social History Smoking Status: Heavy Smoker > 10 Cigarettes Daily - CARDIAC Hx Hypertension: Yes - PULMONARY Hx Chronic Obstructive Pulmonary Disease (COPD): Yes - NEUROLOGICAL Hx Seizures: No - HEENT Hx HEENT Problems: No - RENAL Hx Chronic Kidney Disease: No - ENDOCRINE/METABOLIC Hx Endocrine Disorders: No Hx Systemic Lupus Erythematosus: No - HEMATOLOGICAL/ONCOLOGICAL Hx AIDS: No Hx Human Immunodeficiency Virus (HIV): No - INTEGUMENTARY Hx Dermatological Problems: No - MUSCULOSKELETAL/RHEUMATOLOGICAL Hx Arthritis: No Hx Falls: No Hx Fractures: No - GASTROINTESTINAL Hx Gastrointestinal Disorders: No Hx Colitis: No Hx Liver Failure: No Hx Nausea: No - GENITOURINARY/GYNECOLOGICAL Hx Sexually Transmitted Disorders: No - PSYCHIATRIC Hx Psychophysiologic Disorder: Yes - SURGICAL HISTORY Hx Surgeries: Yes Hx Herniorrhaphy: Yes (right inguinal hernia 2009) - ANESTHESIA Hx Anesthesia: Yes Hx Anesthesia Reactions: No Meds Allergies/Adverse Reactions: Allergies Allergy/AdvReac Type Severity Reaction Status Date / Time No Known Allergies Allergy Verified 03/14/18 14:10 Results - Vital Signs Recent Vital Signs: Last Vital Signs Temp 98.2 F 03/15/18 12:31 Pulse 73 03/15/18 12:31 Resp 20 03/15/18 12:31 BP 123/73 03/15/18 12:31 Pulse Ox 96 03/15/18 12:31 - Labs Result Diagrams: 03/15/18 05:40 03/15/18 05:40 Labs: Laboratory Results - last 24 hr 03/14/18 03/14/18 03/14/18 14:17 14:30 14:30 WBC 11.9 H D RBC 5.31 Hgb 17.0 Hct 49.5 MCV 93.3 MCH 32.0 H MCHC 34.3 RDW 13.8 Plt Count 342 MPV 6.9 L Neut % (Auto) 77.5 H Lymph % (Auto) 13.1 L Randolph % (Auto) 8.3 Eos % (Auto) 0.7 Baso % (Auto) 0.4 Neut # (Auto) 9.2 H Lymph # (Auto) 1.6 Randolph # (Auto) 1.0 H Eos # (Auto) 0.1 Baso # (Auto) 0.1 PT INR APTT Sodium 139 Potassium 4.3 Chloride 104 Carbon Dioxide 26 Anion Gap 13 BUN 14 Creatinine 0.8 Est GFR ( Amer) > 60 Est GFR (Non-Af Amer) > 60 POC Glucose (mg/dL) 164 H Random Glucose 109 Hemoglobin A1c Calcium 9.4 Total Bilirubin 0.9 AST 25 ALT 34 Alkaline Phosphatase 131 H Troponin I < 0.0120 Total Protein 7.1 Albumin 3.8 Globulin 3.2 Albumin/Globulin Ratio 1.2 Triglycerides 129 D Cholesterol 176 LDL Cholesterol Direct 108 HDL Cholesterol 42 Vitamin B12 Thyroxine (T4) Total T3 TSH 3rd Generation Blood Type Antibody Screen BBK History Checked 03/14/18 03/14/18 03/14/18 14:30 14:30 18:27 WBC RBC Hgb Hct MCV MCH MCHC RDW Plt Count MPV Neut % (Auto) Lymph % (Auto) Randolph % (Auto) Eos % (Auto) Baso % (Auto) Neut # (Auto) Lymph # (Auto) Randolph # (Auto) Eos # (Auto) Baso # (Auto) PT 11.5 INR 1.0 APTT 31.9 Sodium Potassium Chloride Carbon Dioxide Anion Gap BUN Creatinine Est GFR ( Amer) Est GFR (Non-Af Amer) POC Glucose (mg/dL) Random Glucose Hemoglobin A1c 5.9 Calcium Total Bilirubin AST ALT Alkaline Phosphatase Troponin I Total Protein Albumin Globulin Albumin/Globulin Ratio Triglycerides Cholesterol LDL Cholesterol Direct HDL Cholesterol Vitamin B12 Thyroxine (T4) Total T3 TSH 3rd Generation Blood Type O POSITIVE Antibody Screen Negative BBK History Checked No verified bt 03/15/18 03/15/18 05:40 05:40 WBC 6.4 RBC 4.86 Hgb 15.7 Hct 45.9 MCV 94.3 H MCH 32.3 H MCHC 34.2 RDW 13.9 Plt Count 311 MPV Neut % (Auto) Lymph % (Auto) Randolph % (Auto) Eos % (Auto) Baso % (Auto) Neut # (Auto) Lymph # (Auto) Randolph # (Auto) Eos # (Auto) Baso # (Auto) PT INR APTT Sodium 142 Potassium 3.9 Chloride 108 H Carbon Dioxide 28 Anion Gap 10 BUN 13 Creatinine 0.8 Est GFR ( Amer) > 60 Est GFR (Non-Af Amer) > 60 POC Glucose (mg/dL) Random Glucose 90 Hemoglobin A1c Calcium 8.8 Total Bilirubin 0.8 AST 19 ALT 28 Alkaline Phosphatase 117 Troponin I Total Protein 6.0 L Albumin 3.1 L Globulin 2.9 Albumin/Globulin Ratio 1.1 Triglycerides 115 Cholesterol 152 LDL Cholesterol Direct 96 HDL Cholesterol 33 Vitamin B12 350 Thyroxine (T4) 6.40 Total T3 0.812 L TSH 3rd Generation 0.26 L Blood Type Antibody Screen BBK History Checked - Imaging and Cardiology MRI - head Additional comment: no acute pathology MRA head Additional comment: no acute pathology CT scan - head Additional comment: no acute pathology Assessment & Plan - Assessment and Plan (Free Text) Assessment: Dx Unable to extend fifth and fourth finger of right hand from Wrist ?--unable to assess objectivity of symptoms Malingering ?? All work up including imaging and physical exam shows that patient's symptoms are factitious.
== END 2018-03-15 15:01 | disposition home or self-care (01) ==
LOC: H.ER 14:07 → H.ERHOLD 15:32 → H.TEL 18:56
PROVIDERS: ADMIT Internal Medicine; ATTEND Internal Medicine
DX: R20.2 Paresthesia of skin (principal); F41.9 Anxiety disorder, unspecified; J44.9 Chronic obstructive pulmonary disease, unspecified; F32.9 Major depressive disorder, single episode, unspecified; I10 Essential (primary) hypertension; Z91.14 Patient's other noncompliance with medication regimen; Z59.0 Homelessness; F14.90 Cocaine use, unspecified, uncomplicated; E03.9 Hypothyroidism, unspecified; Z76.5 Malingerer [conscious simulation]
CPT/HCPCS: 36415; 70450; 70544; 70551; 71045; 80053; 80061; 82607; 82948; 83036; 84436; 84443; 84480; 84484; 85025; 85027; 85610; 85730; 86850; 86900; 93005; 96360; 96361; 97110; 97116; 97161; 97166; 99285; G0378; G8978; G8979; G8980; G8987; G8988; G8989; J7030

== ENCOUNTER 2018-07-02 04:18 | Emergency (ER) | payer MEDICAID ==
[2018-07-02 04:18] VITALS: BMI 20.9
[2018-07-02 04:29] VITALS: PULSE 90; RESP 18; TEMP 98.4; O2SAT 99
--- NOTE | 2018-07-02 04:56 | ED PDOC ---
HPI: Psych/Substance Abuse Time Seen by Provider: 07/02/18 04:26 Chief Complaint (Nursing): Abdominal Pain Chief Complaint (Provider): Groin Pain History Per: Patient History/Exam Limitations: no limitations Additional Complaint(s): 58 year old male was brought to the ER by PD for medical and psychiatric clearance for incarceration. Upon arrest, patient states his inguinal hernia was bothering him to which admits he has had for years. He took Advil 12 hours ago without any relief. Patient has no other complaints. Denies fever/chills, nausea, vomiting, diarrhea, urinary symptoms, testicular pain. PMD: No Family Provider Past Medical History Reviewed: Historical Data, Nursing Documentation, Vital Signs Vital Signs: Last Vital Signs Temp 98.4 F 07/02/18 04:27 Pulse 90 07/02/18 04:27 Resp 18 07/02/18 04:27 BP 147/105 H 07/02/18 04:27 Pulse Ox 99 07/02/18 04:27 - Medical History PMH: Anxiety, COPD, Depression, HTN - Surgical History Surgical History: Hernia Repair - Family History Family History: States: Unknown Family Hx - Social History Current smoker - smoking cessation education provided: Yes (Heavy Smoker > 10 Cigarettes Daily) Alcohol: None Drugs: Cocaine - Home Medications Home Medications: Ambulatory Orders Medication Instructions Recorded Mirtazapine [Remeron] 7.5 mg PO HS 30 Days #30 tab 01/15/18 OXcarbazepine [Trileptal] 150 mg PO BID 30 Days #60 tab 01/15/18 - Allergies Allergies/Adverse Reactions: Allergies Allergy/AdvReac Type Severity Reaction Status Date / Time No Known Allergies Allergy Verified 03/14/18 14:10 Review of Systems ROS Statement: Except As Marked, All Systems Reviewed And Found Negative Musculoskeletal: Positive for: Other (inguinal hernia pain) Psych: Negative for: Suicidal ideation (homicidal ideation ) Physical Exam - Reviewed Nursing Documentation Reviewed: Yes Vital Signs Reviewed: Yes - Physical Exam Comments: GENERAL APPEARANCE: Patient is awake, alert, oriented x 3, in no acute distress , resting comfortably. SKIN: Warm, dry; (-) cyanosis ENMT: Mucous membranes moist. Airway patent: (-) stridor. NECK: Supple, FROM HEART AND CARDIOVASCULAR: (-) irregularity CHEST AND RESPIRATORY: (-) rales, (-) rhonchi, (-) wheezes; breath sounds equal. Respirations even and nonlabored. ABDOMEN: Soft, (-) distention, (-) tenderness, (-) guarding (+) mild left inguinal tenderness (-) palpable mass NEURO AND PSYCH: Mental status as above. EOMI; (-) facial asymmetry. Gait: Steady. Speech: clear. - ECG O2 Sat by Pulse Oximetry: 99 (RA) Pulse Ox Interpretation: Normal Medical Decision Making Medical Decision Making: Time: 439 Initial Impression: medical and psychiatric clearance --Consult to Crisis --Repeat BP: 147/78 Patient has been cleared by crisis and diagnosed with adjustment disorder as per Dr. Casas. Patient to be discharged into PD custody. Vitals stable Return to the emergency room at any time for any new or worsening symptoms. Patient states he fully agrees with and understands discharge instructions. States that he agrees with the plan and disposition. Verbalized and repeated discharge instructions and plan. I have given the patient opportunity to ask any additional questions. Scribe Attestation: Documented by Kelsey Ledesma, acting as a scribe for Nubia Guillen PA-C. Provider Scribe Attestation: All medical record entries made by the Scribe were at my direction and personally dictated by me. I have reviewed the chart and agree that the record accurately reflects my personal performance of the history, physical exam, medical decision making, and the department course for this patient. I have also personally directed, reviewed, and agree with the discharge instructions and disposition. Disposition - Clinical Impression Clinical Impression: Medical clearance for incarceration, Groin pain - Patient ED Disposition Is Patient to be Admitted: No Counseled Patient/Family Regarding: Studies Performed, Diagnosis, Need For Followup - Disposition Referrals: [facility] [Outside] Disposition: Discharged/Transfer to Law Enforcement Disposition Time: 04:53 Condition: STABLE Additional Instructions: PATIENT IS MEDICALLY AND PSYCHIATRICALLY STABLE FOR INCARCERATION. The emergency medical care you received today was directed towards the acute presenting symptoms. If you were prescribed any medication, please fill it and give as directed. It may take several days for your symptoms to resolve. Return to the Emergency Department at any time if symptoms worsen, do not improve, or if any other problems arise. Please contact your doctor in 2 days for re-evaluation and follow up / or call one of the physicians/clinics you have been referred to that are listed on the Patient Visit Information form that is included in your discharge packet. Bring any paperwork you were given at discharge with you along with any medications to your follow up visit. Our treatment cannot replace ongoing medical care by a primary care provider (PCP) outside of the emergency department. Instructions: General (DC) Forms: [facility] (Cameroonian) Print Language: CYPRIOT - POA Present On Arrival: None
[2018-07-02 05:10] VITALS: BP 147/78
== END 2018-07-02 05:07 ==
LOC: H.ER 04:18
DX: R10.30 Lower abdominal pain, unspecified (principal); F17.210 Nicotine dependence, cigarettes, uncomplicated; Z86.59 Personal history of other mental and behavioral disorders; I10 Essential (primary) hypertension; J44.9 Chronic obstructive pulmonary disease, unspecified

== ENCOUNTER 2018-07-08 05:49 | Emergency (ER) | payer MEDICAID ==
[2018-07-08 06:18] VITALS: BMI 20.3
[2018-07-08 06:20] VITALS: O2SAT 98
[2018-07-08] MEDS ORDERED: Albuterol 0.083% Inhal Sol (2.5 mg/3 mL) UD INH STA (07:19)
[2018-07-08] MEDS ORDERED: Sodium Chloride 3% for Inhalation 4 ML VIAL.NEB IH PRN (07:19)
[2018-07-08] MEDS ORDERED: Sodium Chloride 3% for Inhalation 4 ML VIAL.NEB IH ONE (07:44)
[2018-07-08] MEDS ORDERED: Albuterol 0.083% Inhal Sol (2.5 mg/3 mL) UD ONE (07:44)
[2018-07-08 07:47] LABS: BASO # 0.1 K/uL (0.0-0.2); BASO % 0.6 % (0.0-2.0); EOS % 0.4 % (0.0-4.0); LYMPH # 1.5 K/uL (1.0-4.3); LYMPH % 15.1 % (20.0-40.0); MEAN CELL VOLUME 94.8 fl (80.0-94.0); MEAN CORPUSCULAR HEMOGLOBIN 32.6 pg (27.0-31.0); MEAN CORPUSCULAR HGB CONC 34.4 g/dL (33.0-37.0); MEAN PLATELET VOLUME 7.2 fl (7.2-11.7); MONO # 0.8 K/uL (0.0-0.8); MONO % 7.4 % (0.0-10.0); NEUT # 7.8 K/uL (1.8-7.0); NEUT % 76.5 % (50.0-75.0); RBC 4.89 Mil/uL (4.40-5.90); RED CELL DISTRIBUTION WIDTH 13.6 % (11.5-14.5); WHITE BLOOD COUNT 10.2 K/uL (4.8-10.8)
[2018-07-08 08:00] LABS: BLOOD UREA NITROGEN 16 mg/dl (9-20); CALCIUM 9.1 mg/dL (8.4-10.2); GFR NON-AFRICAN AMERICAN > 60
[2018-07-08 08:13] LABS: PROTHROMBIN TIME 10.8 Seconds (9.8-13.1)
[2018-07-08 08:16] LABS: PARTIAL THROMBOPLASTIN TIME 33.8 Seconds (25.6-37.1)
--- NOTE | 2018-07-08 08:43 | RAD ---
Date of service: 07/08/2018 PROCEDURE: CHEST RADIOGRAPH, 1 VIEW HISTORY: dyspnea COMPARISON: None available. FINDINGS: LUNGS: Clear. PLEURA: No pneumothorax or pleural fluid seen. CARDIOVASCULAR: Normal. OSSEOUS STRUCTURES: No significant abnormalities. VISUALIZED UPPER ABDOMEN: Normal. OTHER FINDINGS: None. IMPRESSION: No active disease.
[2018-07-08] MEDS ORDERED: Sodium Chloride 0.9% 50 ML IV ONE (09:00)
[2018-07-08] MEDS ORDERED: Iodixanol 320 MG/ML 100 ML BOTTLE IV ONE (09:00)
--- NOTE | 2018-07-08 10:59 | ED PDOC ---
- Laboratory Results Result Diagrams: 07/08/18 07:30 07/08/18 07:30 Interpretation Of Abn Labs: no acute - ECG ECG: Positive for: Interpreted By Me, Viewed By Me ECG Rhythm: Positive for: Normal QRS, Normal ST Segment, Sinus Rhythm O2 Sat by Pulse Oximetry: 98 Pulse Ox Interpretation: Normal - Radiology X-Ray: Read By Radiologist X-Ray Interpretation: No Acute Disease - Progress ED Course And Treament: 700: Took over care from Dr. Schwartz. Fu on labs and imaging. Here with cough, blood tinged sputum. 1050: Stable. Pending cta. 1325: Stable. AAOx3. Pain free. Tolerated po. Fu with pcp. Disposition - Clinical Impression Clinical Impression: Cough, URI (upper respiratory infection) - POA Present On Arrival: None - Disposition Referrals: [facility] [Outside] - 07/09/18 Disposition: Routine/Home Disposition Time: 13:26 Condition: STABLE Additional Instructions: Return if not better in 3 days. Prescriptions: Azithromycin [Zithromax] 250 mg PO DAILY 5 Days tab Benzonatate [Tessalon Perles] 100 mg PO BID PRN 5 Days sgl PRN Reason: Cough Instructions: Cough, Adult (DC)
--- NOTE | 2018-07-08 11:57 | CARD ---
APPROVED REPORT Date of service: 07/08/2018 EKG Measurement Heart [id number] [id number] <Conclusion> Sinus bradycardia RSR' in v1 suggests RV conduction delay Otherwise normal ECG
--- NOTE | 2018-07-08 12:56 | CT ---
Date of service: 07/08/2018 PROCEDURE: CT Chest with contrast (Pulmonary Angiogram) HISTORY: chest pain COMPARISON: None available. TECHNIQUE: Axial computed tomography images were obtained of the chest in the pulmonary arterial phase of enhancement. Coronal and sagittal reformatted images were created and reviewed. Intravenous contrast dose: Radiation dose: Total exam DLP = mGy-cm. This CT exam was performed using one or more of the following dose reduction techniques: Automated exposure control, adjustment of the mA and/or kV according to patient size, and/or use of iterative reconstruction technique. FINDINGS: PULMONARY ARTERIES: Unremarkable. No pulmonary embolism. AORTA: No acute findings. No thoracic aortic aneurysm. LUNGS: Emphysema. Minimal fibronodular changes and discoid atelectasis in the lingula. No mass or pulmonary consolidation. PLEURAL SPACES: Unremarkable. No effusion or pneumothorax. HEART: Unremarkable. No cardiomegaly. No significant pericardial effusion. LYMPH NODES: No lymphadenopathy. BONES, CHEST WALL: Unremarkable. No fracture or destructive lesion OTHER FINDINGS: Unremarkable. IMPRESSION: Unremarkable CT pulmonary angiogram. No pulmonary embolus.
[2018-07-08 14:34] VITALS: BP 138/74; PULSE 72; RESP 19; TEMP 98.3
== END 2018-07-08 15:17 | disposition home or self-care (01) ==
LOC: H.ER 05:49
DX: J06.9 Acute upper respiratory infection, unspecified (principal)
CPT/HCPCS: 71045; 71275; 80048; 85025; 85610; 85730; 87040; 87070; 93005; 94640; 99283; Q9967

== ENCOUNTER 2018-11-27 00:08 | Emergency (ER) | payer MEDICAID, OTHER ==
[2018-11-27 00:08] VITALS: BMI 20.3
[2018-11-27 00:30] VITALS: TEMP 97.4; O2SAT 98
--- NOTE | 2018-11-27 02:56 | ED PDOC ---
Lower Extremity Pain/Injury Time Seen by Provider: 11/27/18 01:18 Chief Complaint (Nursing): Lower Extremity Problem/Injury Chief Complaint (Provider): Lower Extremity Problem/Injury History Per: Patient History/Exam Limitations: no limitations Onset/Duration Of Symptoms: Days (x3-4) Additional Complaint(s): 58 years old male presents to ER for evaluation of constant right knee pain associated with intermittent sharp pain to the knee onset 3 to 4 days ago. Patient denies any fall. Contrary to triage note patient has only right knee pain. PMD: None provided Past Medical History Reviewed: Historical Data, Nursing Documentation, Vital Signs Vital Signs: Last Vital Signs Temp 97.4 F L 11/27/18 00:21 Pulse 87 11/27/18 00:21 Resp 17 11/27/18 00:21 BP 170/107 H 11/27/18 00:21 Pulse Ox 98 11/27/18 00:21 - Medical History PMH: Anxiety, Bipolar Disorder, COPD, Depression, HTN Denies: Arthritis, Diabetes, Fractures, Hepatitis, HIV, Kidney Stones, Chronic Kidney Disease, Seizures, Sexually Transmitted Disease - Surgical History Surgical History: Hernia Repair - Family History Family History: States: Unknown Family Hx - Social History Current smoker - smoking cessation education provided: Yes Drugs: Cocaine (last time was 4 days ago) - Immunization History Hx Tetanus Toxoid Vaccination: No Hx Influenza Vaccination: No Hx Pneumococcal Vaccination: No - Home Medications Home Medications: Ambulatory Orders Medication Instructions Recorded RX: Divalproex [Depakote DR] 500 mg PO BID #60 tcp 11/25/18 RX: Gabapentin [Neurontin] 300 mg PO BID #60 cap 11/25/18 RX: Mirtazapine [Remeron] 15 mg PO HS #30 tab 11/25/18 RX: QUEtiapine [SEROquel] 50 mg PO HS #30 tab 11/25/18 - Allergies Allergies/Adverse Reactions: Allergies Allergy/AdvReac Type Severity Reaction Status Date / Time No Known Allergies Allergy Verified 07/08/18 06:17 Review of Systems ROS Statement: Except As Marked, All Systems Reviewed And Found Negative Cardiovascular: Negative for: Chest Pain Respiratory: Negative for: Shortness of Breath Musculoskeletal: Positive for: Leg Pain (Right knee pain) Physical Exam - Reviewed Nursing Documentation Reviewed: Yes Vital Signs Reviewed: Yes - Physical Exam Appears: Positive for: Well, No Acute Distress Head Exam: Positive for: ATRAUMATIC, NORMOCEPHALIC Skin: Positive for: Normal Color Extremity: Positive for: Normal ROM (upper and lower), Capillary Refill (less than 2 s). Negative for: Tenderness, Pedal Edema, Calf Tenderness, Deformity, Swelling (of right knee) Neurologic/Psych: Positive for: Alert, Oriented (x3) - ECG O2 Sat by Pulse Oximetry: 98 (RA) Pulse Ox Interpretation: Normal Medical Decision Making Medical Decision Making: Time: 305 Initial plan: --Right knee x-ray 0 --Patient is sleeping comfortably in the ED. bp improved. --Knee x-ray shows no active disease. --Upon provider reevaluation patient is feeling better, is medically stable, and requires no further treatment in the ED at this time. Patient will be discharged home. Counseling was provided and all questions were answered regarding diagnosis and need for follow up with an orthopedic for outpt mri. R knee wrapped in IAIN bandage Scribe Attestation: Documented by Bindu Han, acting as a scribe for Remington Bauman MD. Provider Scribe Attestation: All medical record entries made by the Scribe were at my direction and personally dictated by me. I have reviewed the chart and agree that the record accurately reflects my personal performance of the history, physical exam, medical decision making, and the department course for this patient. I have also personally directed, reviewed, and agree with the discharge instructions and disposition. Disposition - Clinical Impression Clinical Impression: Knee pain - Patient ED Disposition Is Patient to be Admitted: No Counseled Patient/Family Regarding: Studies Performed, Diagnosis, Need For Fo llowup - Disposition Referrals: Derek Cardenas MD [Medical Doctor] - Disposition: Routine/Home Disposition Time: 04:20 Condition: IMPROVED Additional Instructions: follow up with orthopedics as instructed return to the ED with any worsening or concerning symptoms Instructions: Knee Pain (DC) Forms: Qlue (Setswana)
[2018-11-27 04:58] VITALS: BP 122/64; PULSE 74; RESP 22
--- NOTE | 2018-11-27 08:24 | RAD ---
Date of service: 11/27/2018 PROCEDURE: Right Knee Radiographs. HISTORY: atraumatic pain COMPARISON: None. FINDINGS: BONES: No acute fracture or destructive bony lesion identified. JOINTS: Limited medial femorotibial joint space narrowing. No cortical sclerosis or osteophyte development appreciated throughout. No subluxation or dislocation. JOINT EFFUSION: None. OTHER FINDINGS: None. IMPRESSION: No acute fracture or dislocation right knee. Limited degenerative joint disease noted.
== END 2018-11-27 04:20 | disposition home or self-care (01) ==
LOC: H.ER 00:08
DX: M25.561 Pain in right knee (principal)